=== PATIENT | male | born 1985 | race Caucasian/White ===

== ENCOUNTER → 2016-04-14 | Outpatient (CLI) | payer BC, MEDICAID ==
[2016-04-14 17:57] LABS: ALBUMIN 4.1 GM/DL (3.2-5.2); ALBUMIN/GLOBULIN RATIO 1.41 (1.00-1.93); ALKALINE PHOSPHATASE 87 U/L (45-117); ALT/SGPT 24 U/L (12-78); ANION GAP 7 MEQ/L (8-16); AST/SGOT 13 U/L (15-37); BILIRUBIN,TOTAL 0.4 MG/DL (0.2-1.0); BLOOD UREA NITROGEN 16 MG/DL (7-18); CARBON DIOXIDE LEVEL 30 MEQ/L (21-32); CHLORIDE LEVEL 105 MEQ/L (98-107); CHOLESTEROL LEVEL 155 MG/DL (<200); FREE T4 1.05 NG/DL (0.76-1.46); GLOMERULAR FILTRATION RATE > 60.0 (>60); GLUCOSE, FASTING 92 MG/DL (70-105); POTASSIUM SERUM 4.5 MEQ/L (3.5-5.1); SODIUM LEVEL 142 MEQ/L (136-145); TRIGLYCERIDES LEVEL 135 MG/DL (<150)
== END ==
LOC: M LAB 16:16
PROVIDERS: ATTEND Family Medicine
DX: G43.A0 Cyclical vomiting, in migraine, not intractable (principal); R53.83 Other fatigue; Z82.49 Family history of ischemic heart disease and other diseases of the circulatory system

== ENCOUNTER 2016-04-17 07:04 | Emergency (ER) | payer MEDICAID ==
[2016-04-17] MEDS ORDERED: ONDANSETRON 4MG/2ML VIAL (J2405) As Ordered ONE (07:39)
[2016-04-17] MEDS ORDERED: KETOROLAC 30 MG/ML VIAL (J1885) As Ordered ONE (07:39)
[2016-04-17 07:58] LABS: BASO % 0.3 % (0.0-1.0); EOS # 0.4 K/mm3 (0.0-0.50); EOS % 4.6 % (0.0-3.0); LARGE UNSTAINED CELL # 0.1 K/mm3 (0.0-0.4); LARGE UNSTAINED CELL % 0.8 % (0.0-4.0); LYMPH # 0.7 K/mm3 (1.5-4.5); LYMPH % 6.7 % (24.0-44.0); MEAN CORPUSCULAR HEMOGLOBIN 31.5 pg (27.0-33.0); MEAN CORPUSCULAR HGB CONC 34.7 g/dl (32.0-36.5); MEAN CORPUSCULAR VOLUME 90.6 fl (80.0-96.0); MONO # 0.4 K/mm3 (0.0-0.8); MONO % 4.1 % (0.0-5.0); NEUTROPHILS # 8.1 K/mm3 (1.8-7.7); NEUTROPHILS % 83.5 % (36.0-66.0); PLATELET COUNT, AUTOMATED 211 k/mm3 (150-450); RED CELL DISTRIBUTION WIDTH 12.6 % (11.5-14.5); WHITE BLOOD COUNT 9.7 K/mm3 (4.0-10.0)
[2016-04-17 08:13] LABS: ALBUMIN/GLOBULIN RATIO 1.18 (1.00-1.93); ALKALINE PHOSPHATASE 79 U/L (45-117); ALT/SGPT 22 U/L (12-78); AMYLASE 44 U/L (25-115); ANION GAP 6 MEQ/L (8-16); AST/SGOT 12 U/L (15-37); BILIRUBIN,DIRECT 0.3 MG/DL (0.0-0.2); BLOOD UREA NITROGEN 14 MG/DL (7-18); CALCIUM LEVEL 8.9 MG/DL (8.5-10.1); CARBON DIOXIDE LEVEL 29 MEQ/L (21-32); CHLORIDE LEVEL 106 MEQ/L (98-107); CREATININE FOR GFR 1.02 MG/DL (0.70-1.30); GLOMERULAR FILTRATION RATE > 60.0 (>60); GLUCOSE, FASTING 107 MG/DL (70-105); POTASSIUM SERUM 4.4 MEQ/L (3.5-5.1); SODIUM LEVEL 141 MEQ/L (136-145); TOTAL PROTEIN 7.4 GM/DL (6.4-8.2)
[2016-04-17] MEDS ORDERED: diphenhydrAMINE 25 MG CAP As Ordered ONE (08:49)
--- NOTE | 2016-04-17 09:01 | EDDOCDS ---
Physician Documentation [facility] Name: Shreyas Taylor Age: 30 yrs Sex: Male : 1985 Arrival Date: 04/17/2016 Time: 07:04 Bed I2 / M2 Private MD: Yeison Velazquez M. Disposition: 04/17/16 08:30 Discharged to Home/Self Care. Impression: Nausea and vomiting. - Condition is Stable. - Discharge Instructions: Nausea and Vomiting. - Prescriptions for Zofran 4 mg Oral Tablet - take 1 tablet by ORAL route 4 times per day As needed; 10 tablet. - Medication Reconciliation, Local Pharmacy Hours form. - Follow up: Yeison Velazquez; When: 2 - 3 days; Reason: Recheck today's complaints, Continuance of care. - Problem is new. - Symptoms are unchanged. Historical: - Allergies: Amoxicillin (Rash); - Home Meds: 1. none - PMHx: none; - PSHx: none; - Social history: Smoking status: Patient states former smoker of tobacco. No barriers to communication noted, Speaks appropriately for age. - Family history: Not pertinent. - : The pt / caregiver states he / she is not on anticoagulants. Home medication list is obtained from the patient. - Exposure Risk Screening:: None identified. Vital Signs: 04/17 07:11 BP 143 / 97; Pulse 102; Resp 16; Temp 98.2(O); Pulse Ox 98% on R/A; Weight 65.77 kg / ml6 145 lbs (R); Height 5 ft. 9 in. (175.26 cm) (R); Pain 0/10; 07:11 BP 140 / 88 Supine; Pulse 86; ml6 07:11 BP 142 / 92 Standing; Pulse 106; ml6 07:11 BP 143 / 93 Sitting; Pulse 101; ml6 08:10 Pain 0/10; ml6 08:35 BP 129 / 76; Pulse 76; Resp 17; Temp 97.0(O); Pulse Ox 99% on R/A; lr2 07:11 Body Mass Index 21.41 (65.77 kg, 175.26 cm) ml6 MDM: 07:35 NS 0.9% 1000 ml IV at bolus once ordered. ke 07:35 Ondansetron 4 mg IVP once ordered. ke 07:35 ketorolac 30 mg IVP once ordered. ke 07:35 IV Saline Lock ordered. ke 07:35 Undress patient appropriately for examination ordered. ke 07:35 Obtain sample by nasopharyngeal swab ordered. ke 07:36 Amylase Ordered. EDMS 07:36 Basic Metabolic Profile Ordered. EDMS 07:36 CBC with Diff Ordered. EDMS 07:36 Lipase Ordered. EDMS 07:36 Liver Profile Ordered. EDMS 07:36 -Influenza A&B Rapid Antigen - Nose Ordered. EDMS 07:36 NOTHING BY MOUTH+DIET ordered. EDMS 07:37 Financial registration complete. lg 08:26 Basic Metabolic Profile Reviewed. ke 08:26 CBC with Diff Reviewed. ke 08:26 Liver Profile Reviewed. ke 08:26 Amylase Reviewed. ke 08:26 Lipase Reviewed. ke 08:26 -Influenza A&B Rapid Antigen - Nose Reviewed. ke 08:49 diphenhydrAMINE 25 mg PO once ordered. ke 08:52 [facility] Payment Agreement was scanned into [employer] and attached to record. lg Administered Medications: 07:48 Drug: NS 0.9% 1000 ml [sodium chloride 0.9 % intravenous solution] Route: IV; Rate: ml6 bolus; Site: right antecubital; 08:55 Follow up: IV Status: Completed infusion; Infusion discontinued; IV Intake: 1000ml ml6 07:48 Drug: Ondansetron 4 mg [ondansetron HCl 2 mg/mL intravenous solution (2 mL)] Route: ml6 IVP; Site: right antecubital; 07:48 Drug: ketorolac 30 mg [ketorolac 30 mg/mL (1 mL) injection solution (1 mL)] Route: IVP; ml6 Site: right antecubital; 08:10 Follow up: Pain 0/10 Adult ml6 08:55 Drug: diphenhydrAMINE 25 mg [diphenhydramine 25 mg capsule (1 caps)] Route: PO; ml6 Signatures: Dispatcher [employer] Robert Holt, Asim Reg Melchor Romero, STRIPE MARKER STRIPE MARKER Shreyas Robins, RN RN ml6 The chart was reviewed and I authenticate all verbal orders and agree with the evaluation and treatment provided.Attachments: 08:52 [facility] [place] Agreement lg MTDD
--- NOTE | 2016-04-17 09:01 | EDDOCDS ---
Nurse's Notes [facility] Name: Shreyas Taylor Age: 30 yrs Sex: Male : 1985 Arrival Date: 04/17/2016 Time: 07:04 Bed I2 / M2 Private MD: Yeison Velazquez M. Diagnosis: Nausea and vomiting Presentation: 04/17 07:10 Presenting complaint: Patient states: states n/v/d denies abd pain, began this am. ml6 Adult Sepsis Screening: The patient does not have new or worsening altered mentation. Patient's respiratory rate is less than 22. Systolic blood pressure is greater than 100. Patient has a qSOFA score of 0- Negative Sepsis Screen. Suicide/Homicide risk assessment- the patient denies having any suicidal and/or homicidal ideations and does not present with any other emotional, behavioral or mental health complaints. Status: Patient is not a service specialist or dependent. Transition of care: patient was not received from another setting of care. 07:10 Acuity: ROSA MARIA Level 4 ml6 07:10 Method Of Arrival: Walkin/Carried/Asstd ml6 08:36 Acuity: ROSA MARIA Level 3 ml6 Triage Assessment: 07:14 General: Appears comfortable, Behavior is appropriate for age. Pain: Denies pain. HIV ml6 screening NA for this visit Offered previously. Neurological: No deficits noted. Cardiovascular: No deficits noted. Capillary refill < 3 seconds is brisk in bilateral fingers toes Heart tones S1 S2 present. Respiratory: No deficits noted. Airway is patent Respiratory effort is even, unlabored, Respiratory pattern is regular, symmetrical, Breath sounds are clear bilaterally. GI: Abdomen is flat, non- distended Bowel sounds present X 4 quads. Abd is soft and non tender X 4 quads. Historical: - Allergies: Amoxicillin (Rash); - Home Meds: 1. none - PMHx: none; - PSHx: none; - Social history: Smoking status: Patient states former smoker of tobacco. No barriers to communication noted, Speaks appropriately for age. - Family history: Not pertinent. - : The pt / caregiver states he / she is not on anticoagulants. Home medication list is obtained from the patient. - Exposure Risk Screening:: None identified. Screenin:37 Screening information is obtained from the patient. Fall risk: No risks identified. ml6 Assistance ADL's: requires no assistance with activities of daily living. Abuse/DV Screen: The patient / caregiver reports he/she is: not in a situation that causes fear, pain or injury. Nutritional screening: No deficits noted. Advance Directives: Currently, there is no health care proxy. home support is adequate. Assessment: 07:14 General: see triage assessment. ml6 08:55 General: patient has one solitary hive over right tenriism, no other hives noticed on ml6 head to toe exam, Kandace Campos PARARESCUE MANAGER notified, benadryl given. Vital Signs: 07:11 BP 143 / 97; Pulse 102; Resp 16; Temp 98.2(O); Pulse Ox 98% on R/A; Weight 65.77 kg ml6 (R); Height 5 ft. 9 in. (175.26 cm) (R); Pain 0/10; 07:11 BP 140 / 88 Supine; Pulse 86; ml6 07:11 BP 142 / 92 Standing; Pulse 106; ml6 07:11 BP 143 / 93 Sitting; Pulse 101; ml6 08:10 Pain 0/10; ml6 08:35 BP 129 / 76; Pulse 76; Resp 17; Temp 97.0(O); Pulse Ox 99% on R/A; lr2 07:11 Body Mass Index 21.41 (65.77 kg, 175.26 cm) 6 Vitals: 07:11 Log In Time: April 17, 2016 at 07:03. 6 ED Course: 07:05 Patient visited by Darrell Maria. mm15 07:05 Yeison Velazquez is Private Physician. mm15 07:05 Patient moved to Waiting mm15 07:10 Triage Initiated ml6 07:15 Patient moved to I2 / M2 ml6 07:27 [facility] ke 07:27 Patient visited by Melchor Campos FNP. ke 07:27 Patient visited by Melchor Campos FNP. ke 07:46 Patient visited by Mimi Bella, [facility]. rs6 07:46 -Influenza A&B Rapid Antigen - Nose Sent. rs6 07:46 Amylase Sent. rs6 07:46 Basic Metabolic Profile Sent. rs6 07:46 CBC with Diff Sent. rs6 07:46 Lipase Sent. rs6 07:46 Liver Profile Sent. rs6 07:46 Labs drawn. (by ED staff). Sent per order to lab. rs6 07:49 Inserted peripheral IV: 18gauge IV in right antecubital area and blood collected. ml6 Patient tolerated the procedure well. 08:12 Patient visited by Melchor Campos FNP. ke 08:30 Yeison Velazquez is Referral Physician. ke 08:37 No procedures done that require assistance. ml6 08:52 Patient name changed from Shreyas\S\\S\Brandon\S\ to Shreyas\S\ \S\Brandon. EDMS 08:52 [facility] Payment Agreement was scanned into [employer] and attached to record. lg 08:56 Discontinued IV bleeding controlled, pressure dressing applied, No redness/swelling at ml6 site. 08:57 The patient / caregiver is instructed regarding the plan of care and ED course. ml6 08:59 Patient name changed from Shreyas\S\ \S\Brandon\S\ to Shreyas\S\Sergio\S\Brandon. EDMS Administered Medications: 07:48 Drug: NS 0.9% 1000 ml [sodium chloride 0.9 % intravenous solution] Route: IV; Rate: ml6 bolus; Site: right antecubital; 08:55 Follow up: IV Status: Completed infusion; Infusion discontinued; IV Intake: 1000ml ml6 07:48 Drug: Ondansetron 4 mg [ondansetron HCl 2 mg/mL intravenous solution (2 mL)] Route: ml6 IVP; Site: right antecubital; 07:48 Drug: ketorolac 30 mg [ketorolac 30 mg/mL (1 mL) injection solution (1 mL)] Route: IVP; ml6 Site: right antecubital; 08:10 Follow up: Pain 0/10 Adult ml6 08:55 Drug: diphenhydrAMINE 25 mg [diphenhydramine 25 mg capsule (1 caps)] Route: PO; ml6 Intake: 08:55 IV: 1000.00ml; Total: 1000.00ml. ml6 Order Results: Lab Order: Amylase; SPEC'M 04/17/16 07:45 Test: AMYLASE; Value: 44; Range: 25-115; Units: U/L; Status: F Lab Order: Basic Metabolic Profile; SPEC'M 04/17/16 07:45 Test: GLUCOSE, FASTING; Value: 107; Range: 70-105; Abnormal: Above high normal; Units: MG/DL; Status: F Test: BLOOD UREA NITROGEN; Value: 14; Range: 7-18; Units: MG/DL; Status: F Test: CREATININE FOR GFR; Value: 1.02; Range: 0.70-1.30; Units: MG/DL; Status: F Test: GLOMERULAR FILTRATION RATE; Value: > 60.0; Range: >60; Status: F Test: SODIUM LEVEL; Value: 141; Range: 136-145; Units: MEQ/L; Status: F Test: POTASSIUM SERUM; Value: 4.4; Range: 3.5-5.1; Units: MEQ/L; Status: F Test: CHLORIDE LEVEL; Value: 106; Range: 98-107; Units: MEQ/L; Status: F Test: CARBON DIOXIDE LEVEL; Value: 29; Range: 21-32; Units: MEQ/L; Status: F Test: ANION GAP; Value: 6; Range: 8-16; Abnormal: Below low normal; Units: MEQ/L; Status: F Test: CALCIUM LEVEL; Value: 8.9; Range: 8.5-10.1; Units: MG/DL; Status: F Test Note: ; Units are mL/min/1.73 m2 Chronic Kidney Disease Staging per NKF: Stage I & II GFR >=60 Normal to Mildly Decreased Stage III GFR 30-59 Moderately Decreased Stage IV GFR 15-29 Severely Decreased Stage V GFR <15 Very Little GFR Left ESRD GFR <15 on ORAL AND MAXILLOFACIAL SURGERY RESIDENT Lab Order: CBC with Diff; SPEC'M 04/17/16 07:45 Test: WHITE BLOOD COUNT; Value: 9.7; Range: 4.0-10.0; Units: K/mm3; Status: F Test: RED BLOOD COUNT; Value: 5.19; Range: 4.30-6.10; Units: M/mm3; Status: F Test: HEMOGLOBIN; Value: 16.3; Range: 14.0-18.0; Units: g/dl; Status: F Test: HEMATOCRIT; Value: 47.0; Range: 42.0-52.0; Units: %; Status: F Test: MEAN CORPUSCULAR VOLUME; Value: 90.6; Range: 80.0-96.0; Units: fl; Status: F Test: MEAN CORPUSCULAR HEMOGLOBIN; Value: 31.5; Range: 27.0-33.0; Units: pg; Status: F Test: MEAN CORPUSCULAR HGB CONC; Value: 34.7; Range: 32.0-36.5; Units: g/dl; Status: F Test: RED CELL DISTRIBUTION WIDTH; Value: 12.6; Range: 11.5-14.5; Units: %; Status: F Test: PLATELET COUNT, AUTOMATED; Value: 211; Range: 150-450; Units: k/mm3; Status: F Test: NEUTROPHILS %; Value: 83.5; Range: 36.0-66.0; Abnormal: Above high normal; Units: %; Status: F Test: LYMPH %; Value: 6.7; Range: 24.0-44.0; Abnormal: Below low normal; Units: %; Status: F Test: MONO %; Value: 4.1; Range: 0.0-5.0; Units: %; Status: F Test: EOS %; Value: 4.6; Range: 0.0-3.0; Abnormal: Above high normal; Units: %; Status: F Test: BASO %; Value: 0.3; Range: 0.0-1.0; Units: %; Status: F Test: LARGE UNSTAINED CELL %; Value: 0.8; Range: 0.0-4.0; Units: %; Status: F Test: NEUTROPHILS #; Value: 8.1; Range: 1.8-7.7; Abnormal: Above high normal; Units: K/mm3; Status: F Test: LYMPH #; Value: 0.7; Range: 1.5-4.5; Abnormal: Below low normal; Units: K/mm3; Status: F Test: MONO #; Value: 0.4; Range: 0.0-0.8; Units: K/mm3; Status: F Test: EOS #; Value: 0.4; Range: 0.0-0.50; Units: K/mm3; Status: F Test: BASO #; Value: 0.0; Range: 0.0-0.2; Units: K/mm3; Status: F Test: LARGE UNSTAINED CELL #; Value: 0.1; Range: 0.0-0.4; Units: K/mm3; Status: F Lab Order: Lipase; SPEC'M 04/17/16 07:45 Test: LIPASE; Value: 171; Range: 73-393; Units: U/L; Status: F Lab Order: Liver Profile; SPEC'M 04/17/16 07:45 Test: AST/SGOT; Value: 12; Range: 15-37; Abnormal: Below low normal; Units: U/L; Status: F Test: ALT/SGPT; Value: 22; Range: 12-78; Units: U/L; Status: F Test: ALKALINE PHOSPHATASE; Value: 79; Range: 45-117; Units: U/L; Status: F Test: BILIRUBIN,TOTAL; Value: 1.0; Range: 0.2-1.0; Abnormal: Delta; Units: MG/DL; Status: F Test: BILIRUBIN,DIRECT; Value: 0.3; Range: 0.0-0.2; Abnormal: Above high normal; Units: MG/DL; Status: F Test: TOTAL PROTEIN; Value: 7.4; Range: 6.4-8.2; Units: GM/DL; Status: F Test: ALBUMIN; Value: 4.0; Range: 3.2-5.2; Units: GM/DL; Status: F Test: ALBUMIN/GLOBULIN RATIO; Value: 1.18; Range: 1.00-1.93; Status: F Lab Order: -Influenza A&B Rapid Antigen - Nose; SPEC'M 04/17/16 07:46 Test: INFLUENZA A RAPID SCR by ICA; Value: INFLUENZA A RESULTS NEGATIVE; Status: F Test: INFLUENZA A RAPID SCR by ICA; Value: Comments:; Status: F Test: INFLUENZA B RAPID SCR by ICA; Value: INFLUENZA B RESULTS NEGATIVE; Status: F Test Note: ; The Influenza test is a direct rapid immunoassay for the qualitative detection of Influenza viral antigen. Cell culture (Viral Culture) testing should be considered to confirm NEGATIVE results and to assist in detecting other viruses that can provide similar clinical symptoms. Please contact the lab within 24 hours ([phone] if confirmatory testing is desired. Outcome: 08:30 Discharge ordered by Provider. 08:56 Discharge Assessment: patient administered narcotics - no. The following High Risk [facility] Discharge criteria are identified: None. Discharged to home ambulatory, with significant other. Condition: improved. Discharge instructions given to patient, Instructed on discharge instructions, follow up and referral plans. medication usage, Demonstrated understanding of instructions, medications, Pt was receptive of discharge instructions/ teaching. Prescriptions given X 1. No special radiology studies were completed. Property :Personal belongings accompany Pt. 08:59 Patient left the ED. ml6 Signatures: Dispatcher Med[employer] EDMS Robert Jara, Asim Reg lg Melchor Campos, SHANK CARRIER SHANK CARRIER Shreyas Robins, RN RN ml6 Darrell Maria mm15 Mimi Bella, CARMEN PROFESSOR OF ECONOMICS rs6 Frances Mello lr2 MTDD
--- NOTE | 2016-04-19 10:00 | EDDOCDS ---
Physician Documentation [facility] Name: Shreyas Taylor Age: 30 yrs Sex: Male : 1985 Arrival Date: 04/17/2016 Time: 07:04 Bed I2 / M2 Private MD: Yeison Velazquez M. Disposition: 04/17/16 08:30 Discharged to Home/Self Care. Impression: Nausea and vomiting. - Condition is Stable. - Discharge Instructions: Nausea and Vomiting. - Prescriptions for Zofran 4 mg Oral Tablet - take 1 tablet by ORAL route 4 times per day As needed; 10 tablet. - Medication Reconciliation, Local Pharmacy Hours form. - Follow up: Yeison Velazquez; When: 2 - 3 days; Reason: Recheck today's complaints, Continuance of care. - Problem is new. - Symptoms are unchanged. Historical: - Allergies: Amoxicillin (Rash); - Home Meds: 1. none - PMHx: none; - PSHx: none; - Social history: Smoking status: Patient states former smoker of tobacco. No barriers to communication noted, Speaks appropriately for age. - Family history: Not pertinent. - : The pt / caregiver states he / she is not on anticoagulants. Home medication list is obtained from the patient. - Exposure Risk Screening:: None identified. Vital Signs: 04/17 07:11 BP 143 / 97; Pulse 102; Resp 16; Temp 98.2(O); Pulse Ox 98% on R/A; Weight 65.77 kg / ml6 145 lbs (R); Height 5 ft. 9 in. (175.26 cm) (R); Pain 0/10; 07:11 BP 140 / 88 Supine; Pulse 86; ml6 07:11 BP 142 / 92 Standing; Pulse 106; ml6 07:11 BP 143 / 93 Sitting; Pulse 101; ml6 08:10 Pain 0/10; ml6 08:35 BP 129 / 76; Pulse 76; Resp 17; Temp 97.0(O); Pulse Ox 99% on R/A; lr2 07:11 Body Mass Index 21.41 (65.77 kg, 175.26 cm) ml6 MDM: 07:35 NS 0.9% 1000 ml IV at bolus once ordered. ke 07:35 Ondansetron 4 mg IVP once ordered. ke 07:35 ketorolac 30 mg IVP once ordered. ke 07:35 IV Saline Lock ordered. ke 07:35 Undress patient appropriately for examination ordered. ke 07:35 Obtain sample by nasopharyngeal swab ordered. ke 07:36 Amylase Ordered. EDMS 07:36 Basic Metabolic Profile Ordered. EDMS 07:36 CBC with Diff Ordered. EDMS 07:36 Lipase Ordered. EDMS 07:36 Liver Profile Ordered. EDMS 07:36 -Influenza A&B Rapid Antigen - Nose Ordered. EDMS 07:36 NOTHING BY MOUTH+DIET ordered. EDMS 07:37 Financial registration complete. lg 08:26 Basic Metabolic Profile Reviewed. ke 08:26 CBC with Diff Reviewed. ke 08:26 Liver Profile Reviewed. ke 08:26 Amylase Reviewed. ke 08:26 Lipase Reviewed. ke 08:26 -Influenza A&B Rapid Antigen - Nose Reviewed. ke 08:49 diphenhydrAMINE 25 mg PO once ordered. ke 08:52 [facility] Payment Agreement was scanned into [employer] and attached to record. lg 14:42 T-Sheet-- Draft Copy was scanned into [employer] and attached to record. gb Administered Medications: 07:48 Drug: NS 0.9% 1000 ml [sodium chloride 0.9 % intravenous solution] Route: IV; Rate: ml6 bolus; Site: right antecubital; 08:55 Follow up: IV Status: Completed infusion; Infusion discontinued; IV Intake: 1000ml ml6 07:48 Drug: Ondansetron 4 mg [ondansetron HCl 2 mg/mL intravenous solution (2 mL)] Route: ml6 IVP; Site: right antecubital; 07:48 Drug: ketorolac 30 mg [ketorolac 30 mg/mL (1 mL) injection solution (1 mL)] Route: IVP; ml6 Site: right antecubital; 08:10 Follow up: Pain 0/10 Adult ml6 08:55 Drug: diphenhydrAMINE 25 mg [diphenhydramine 25 mg capsule (1 caps)] Route: PO; ml6 Signatures: Dispatcher [employer] EDMS Maki Mendoza, Reg Reg gb Robert Jara, Reg Reg lg Melchor Campos, SUPERANNUATION FUNDS MANAGER SUPERANNUATION FUNDS MANAGER Shreyas Robins, RN RN ml6 The chart was reviewed and I authenticate all verbal orders and agree with the evaluation and treatment provided.Attachments: 08:52 [facility] Payment Agreement lg 14:42 T-Sheet-- Draft Copy gb Chart Complete MTDD
--- NOTE | 2016-04-19 10:00 | EDDOCDS ---
Physician Documentation [facility] Name: Shreyas Taylor Age: 30 yrs Sex: Male : 1985 Arrival Date: 04/17/2016 Time: 07:04 Bed I2 / M2 Private MD: Yeison Velazquez M. Disposition: 04/17/16 08:30 Discharged to Home/Self Care. Impression: Nausea and vomiting. - Condition is Stable. - Discharge Instructions: Nausea and Vomiting. - Prescriptions for Zofran 4 mg Oral Tablet - take 1 tablet by ORAL route 4 times per day As needed; 10 tablet. - Medication Reconciliation, Local Pharmacy Hours form. - Follow up: Yeison Velazquez; When: 2 - 3 days; Reason: Recheck today's complaints, Continuance of care. - Problem is new. - Symptoms are unchanged. Historical: - Allergies: Amoxicillin (Rash); - Home Meds: 1. none - PMHx: none; - PSHx: none; - Social history: Smoking status: Patient states former smoker of tobacco. No barriers to communication noted, Speaks appropriately for age. - Family history: Not pertinent. - : The pt / caregiver states he / she is not on anticoagulants. Home medication list is obtained from the patient. - Exposure Risk Screening:: None identified. Vital Signs: 04/17 07:11 BP 143 / 97; Pulse 102; Resp 16; Temp 98.2(O); Pulse Ox 98% on R/A; Weight 65.77 kg / ml6 145 lbs (R); Height 5 ft. 9 in. (175.26 cm) (R); Pain 0/10; 07:11 BP 140 / 88 Supine; Pulse 86; ml6 07:11 BP 142 / 92 Standing; Pulse 106; ml6 07:11 BP 143 / 93 Sitting; Pulse 101; ml6 08:10 Pain 0/10; ml6 08:35 BP 129 / 76; Pulse 76; Resp 17; Temp 97.0(O); Pulse Ox 99% on R/A; lr2 07:11 Body Mass Index 21.41 (65.77 kg, 175.26 cm) ml6 MDM: 07:35 NS 0.9% 1000 ml IV at bolus once ordered. ke 07:35 Ondansetron 4 mg IVP once ordered. ke 07:35 ketorolac 30 mg IVP once ordered. ke 07:35 IV Saline Lock ordered. ke 07:35 Undress patient appropriately for examination ordered. ke 07:35 Obtain sample by nasopharyngeal swab ordered. ke 07:36 Amylase Ordered. EDMS 07:36 Basic Metabolic Profile Ordered. EDMS 07:36 CBC with Diff Ordered. EDMS 07:36 Lipase Ordered. EDMS 07:36 Liver Profile Ordered. EDMS 07:36 -Influenza A&B Rapid Antigen - Nose Ordered. EDMS 07:36 NOTHING BY MOUTH+DIET ordered. EDMS 07:37 Financial registration complete. lg 08:26 Basic Metabolic Profile Reviewed. ke 08:26 CBC with Diff Reviewed. ke 08:26 Liver Profile Reviewed. ke 08:26 Amylase Reviewed. ke 08:26 Lipase Reviewed. ke 08:26 -Influenza A&B Rapid Antigen - Nose Reviewed. ke 08:49 diphenhydrAMINE 25 mg PO once ordered. ke 08:52 [facility] Payment Agreement was scanned into [employer] and attached to record. lg 14:42 T-Sheet-- Draft Copy was scanned into [employer] and attached to record. gb Administered Medications: 07:48 Drug: NS 0.9% 1000 ml [sodium chloride 0.9 % intravenous solution] Route: IV; Rate: ml6 bolus; Site: right antecubital; 08:55 Follow up: IV Status: Completed infusion; Infusion discontinued; IV Intake: 1000ml ml6 07:48 Drug: Ondansetron 4 mg [ondansetron HCl 2 mg/mL intravenous solution (2 mL)] Route: ml6 IVP; Site: right antecubital; 07:48 Drug: ketorolac 30 mg [ketorolac 30 mg/mL (1 mL) injection solution (1 mL)] Route: IVP; ml6 Site: right antecubital; 08:10 Follow up: Pain 0/10 Adult ml6 08:55 Drug: diphenhydrAMINE 25 mg [diphenhydramine 25 mg capsule (1 caps)] Route: PO; ml6 Signatures: Dispatcher [employer] EDMS Maki Mendoza, Reg Reg gb Robert Jara, Reg Reg lg Melchor Campos, BILLET WORKER BILLET WORKER Shreyas Robins, RN RN ml6 The chart was reviewed and I authenticate all verbal orders and agree with the evaluation and treatment provided.Attachments: 08:52 [facility] Payment Agreement lg 14:42 T-Sheet-- Draft Copy gb Chart Complete MTDD
--- NOTE | 2016-04-19 10:00 | EDDOCDS ---
Nurse's Notes [facility] Name: Shreyas Taylor Age: 30 yrs Sex: Male : 1985 Arrival Date: 04/17/2016 Time: 07:04 Bed I2 / M2 Private MD: Yeison Velazquez M. Diagnosis: Nausea and vomiting Presentation: 04/17 07:10 Presenting complaint: Patient states: states n/v/d denies abd pain, began this am. ml6 Adult Sepsis Screening: The patient does not have new or worsening altered mentation. Patient's respiratory rate is less than 22. Systolic blood pressure is greater than 100. Patient has a qSOFA score of 0- Negative Sepsis Screen. Suicide/Homicide risk assessment- the patient denies having any suicidal and/or homicidal ideations and does not present with any other emotional, behavioral or mental health complaints. Status: Patient is not a human services instructor or dependent. Transition of care: patient was not received from another setting of care. 07:10 Acuity: ROSA MARIA Level 4 ml6 07:10 Method Of Arrival: Walkin/Carried/Asstd ml6 08:36 Acuity: ROSA MARIA Level 3 ml6 Triage Assessment: 07:14 General: Appears comfortable, Behavior is appropriate for age. Pain: Denies pain. HIV ml6 screening NA for this visit Offered previously. Neurological: No deficits noted. Cardiovascular: No deficits noted. Capillary refill < 3 seconds is brisk in bilateral fingers toes Heart tones S1 S2 present. Respiratory: No deficits noted. Airway is patent Respiratory effort is even, unlabored, Respiratory pattern is regular, symmetrical, Breath sounds are clear bilaterally. GI: Abdomen is flat, non- distended Bowel sounds present X 4 quads. Abd is soft and non tender X 4 quads. Historical: - Allergies: Amoxicillin (Rash); - Home Meds: 1. none - PMHx: none; - PSHx: none; - Social history: Smoking status: Patient states former smoker of tobacco. No barriers to communication noted, Speaks appropriately for age. - Family history: Not pertinent. - : The pt / caregiver states he / she is not on anticoagulants. Home medication list is obtained from the patient. - Exposure Risk Screening:: None identified. Screenin:37 Screening information is obtained from the patient. Fall risk: No risks identified. ml6 Assistance ADL's: requires no assistance with activities of daily living. Abuse/DV Screen: The patient / caregiver reports he/she is: not in a situation that causes fear, pain or injury. Nutritional screening: No deficits noted. Advance Directives: Currently, there is no health care proxy. home support is adequate. Assessment: 07:14 General: see triage assessment. ml6 08:55 General: patient has one solitary hive over right nondenominational, no other hives noticed on ml6 head to toe exam, Kandace Campos MOTOR INSPECTION MECHANIC notified, benadryl given. Vital Signs: 07:11 BP 143 / 97; Pulse 102; Resp 16; Temp 98.2(O); Pulse Ox 98% on R/A; Weight 65.77 kg ml6 (R); Height 5 ft. 9 in. (175.26 cm) (R); Pain 0/10; 07:11 BP 140 / 88 Supine; Pulse 86; ml6 07:11 BP 142 / 92 Standing; Pulse 106; ml6 07:11 BP 143 / 93 Sitting; Pulse 101; ml6 08:10 Pain 0/10; ml6 08:35 BP 129 / 76; Pulse 76; Resp 17; Temp 97.0(O); Pulse Ox 99% on R/A; lr2 07:11 Body Mass Index 21.41 (65.77 kg, 175.26 cm) 6 Vitals: 07:11 Log In Time: April 17, 2016 at 07:03. 6 ED Course: 07:05 Patient visited by Darrell Maria. mm15 07:05 Yeison Velazquez is Private Physician. mm15 07:05 Patient moved to Waiting mm15 07:10 Triage Initiated ml6 07:15 Patient moved to I2 / M2 ml6 07:27 Melchor Campos FNP [facility]. ke 07:27 Patient visited by Melchor Campos FNP. ke 07:27 Patient visited by Melchor Campos FNP. ke 07:46 Patient visited by Mimi Bella, [facility]. rs6 07:46 -Influenza A&B Rapid Antigen - Nose Sent. rs6 07:46 Amylase Sent. rs6 07:46 Basic Metabolic Profile Sent. rs6 07:46 CBC with Diff Sent. rs6 07:46 Lipase Sent. rs6 07:46 Liver Profile Sent. rs6 07:46 Labs drawn. (by ED staff). Sent per order to lab. rs6 07:49 Inserted peripheral IV: 18gauge IV in right antecubital area and blood collected. ml6 Patient tolerated the procedure well. 08:12 Patient visited by Melchor Campos FNP. ke 08:30 Yeison Velazquez is Referral Physician. ke 08:37 No procedures done that require assistance. ml6 08:52 Patient name changed from Shreyas\S\\S\Brandon\S\ to Shreyas\S\ \S\Brandon. EDMS 08:52 [facility] [place] Payment Agreement was scanned into [employer] and attached to record. lg 08:56 Discontinued IV bleeding controlled, pressure dressing applied, No redness/swelling at ml6 site. 08:57 The patient / caregiver is instructed regarding the plan of care and ED course. ml6 08:59 Patient name changed from Shreyas\S\ \S\Brandon\S\ to Shreyas\S\Sergio\S\Brandon. EDMS 14:42 T-Sheet-- Draft Copy was scanned into [employer] and attached to record. gb Administered Medications: 07:48 Drug: NS 0.9% 1000 ml [sodium chloride 0.9 % intravenous solution] Route: IV; Rate: ml6 bolus; Site: right antecubital; 08:55 Follow up: IV Status: Completed infusion; Infusion discontinued; IV Intake: 1000ml ml6 07:48 Drug: Ondansetron 4 mg [ondansetron HCl 2 mg/mL intravenous solution (2 mL)] Route: ml6 IVP; Site: right antecubital; 07:48 Drug: ketorolac 30 mg [ketorolac 30 mg/mL (1 mL) injection solution (1 mL)] Route: IVP; ml6 Site: right antecubital; 08:10 Follow up: Pain 0/10 Adult ml6 08:55 Drug: diphenhydrAMINE 25 mg [diphenhydramine 25 mg capsule (1 caps)] Route: PO; ml6 Intake: 08:55 IV: 1000.00ml; Total: 1000.00ml. ml6 Order Results: Lab Order: Amylase; SPEC'M 04/17/16 07:45 Test: AMYLASE; Value: 44; Range: 25-115; Units: U/L; Status: F Lab Order: Basic Metabolic Profile; SPEC'M 04/17/16 07:45 Test: GLUCOSE, FASTING; Value: 107; Range: 70-105; Abnormal: Above high normal; Units: MG/DL; Status: F Test: BLOOD UREA NITROGEN; Value: 14; Range: 7-18; Units: MG/DL; Status: F Test: CREATININE FOR GFR; Value: 1.02; Range: 0.70-1.30; Units: MG/DL; Status: F Test: GLOMERULAR FILTRATION RATE; Value: > 60.0; Range: >60; Status: F Test: SODIUM LEVEL; Value: 141; Range: 136-145; Units: MEQ/L; Status: F Test: POTASSIUM SERUM; Value: 4.4; Range: 3.5-5.1; Units: MEQ/L; Status: F Test: CHLORIDE LEVEL; Value: 106; Range: 98-107; Units: MEQ/L; Status: F Test: CARBON DIOXIDE LEVEL; Value: 29; Range: 21-32; Units: MEQ/L; Status: F Test: ANION GAP; Value: 6; Range: 8-16; Abnormal: Below low normal; Units: MEQ/L; Status: F Test: CALCIUM LEVEL; Value: 8.9; Range: 8.5-10.1; Units: MG/DL; Status: F Test Note: ; Units are mL/min/1.73 m2 Chronic Kidney Disease Staging per NKF: Stage I & II GFR >=60 Normal to Mildly Decreased Stage III GFR 30-59 Moderately Decreased Stage IV GFR 15-29 Severely Decreased Stage V GFR <15 Very Little GFR Left ESRD GFR <15 on FORESTRY AID TECHNICIAN Lab Order: CBC with Diff; SPEC'M 04/17/16 07:45 Test: WHITE BLOOD COUNT; Value: 9.7; Range: 4.0-10.0; Units: K/mm3; Status: F Test: RED BLOOD COUNT; Value: 5.19; Range: 4.30-6.10; Units: M/mm3; Status: F Test: HEMOGLOBIN; Value: 16.3; Range: 14.0-18.0; Units: g/dl; Status: F Test: HEMATOCRIT; Value: 47.0; Range: 42.0-52.0; Units: %; Status: F Test: MEAN CORPUSCULAR VOLUME; Value: 90.6; Range: 80.0-96.0; Units: fl; Status: F Test: MEAN CORPUSCULAR HEMOGLOBIN; Value: 31.5; Range: 27.0-33.0; Units: pg; Status: F Test: MEAN CORPUSCULAR HGB CONC; Value: 34.7; Range: 32.0-36.5; Units: g/dl; Status: F Test: RED CELL DISTRIBUTION WIDTH; Value: 12.6; Range: 11.5-14.5; Units: %; Status: F Test: PLATELET COUNT, AUTOMATED; Value: 211; Range: 150-450; Units: k/mm3; Status: F Test: NEUTROPHILS %; Value: 83.5; Range: 36.0-66.0; Abnormal: Above high normal; Units: %; Status: F Test: LYMPH %; Value: 6.7; Range: 24.0-44.0; Abnormal: Below low normal; Units: %; Status: F Test: MONO %; Value: 4.1; Range: 0.0-5.0; Units: %; Status: F Test: EOS %; Value: 4.6; Range: 0.0-3.0; Abnormal: Above high normal; Units: %; Status: F Test: BASO %; Value: 0.3; Range: 0.0-1.0; Units: %; Status: F Test: LARGE UNSTAINED CELL %; Value: 0.8; Range: 0.0-4.0; Units: %; Status: F Test: NEUTROPHILS #; Value: 8.1; Range: 1.8-7.7; Abnormal: Above high normal; Units: K/mm3; Status: F Test: LYMPH #; Value: 0.7; Range: 1.5-4.5; Abnormal: Below low normal; Units: K/mm3; Status: F Test: MONO #; Value: 0.4; Range: 0.0-0.8; Units: K/mm3; Status: F Test: EOS #; Value: 0.4; Range: 0.0-0.50; Units: K/mm3; Status: F Test: BASO #; Value: 0.0; Range: 0.0-0.2; Units: K/mm3; Status: F Test: LARGE UNSTAINED CELL #; Value: 0.1; Range: 0.0-0.4; Units: K/mm3; Status: F Lab Order: Lipase; SPEC'M 04/17/16 07:45 Test: LIPASE; Value: 171; Range: 73-393; Units: U/L; Status: F Lab Order: Liver Profile; SPEC'M 04/17/16 07:45 Test: AST/SGOT; Value: 12; Range: 15-37; Abnormal: Below low normal; Units: U/L; Status: F Test: ALT/SGPT; Value: 22; Range: 12-78; Units: U/L; Status: F Test: ALKALINE PHOSPHATASE; Value: 79; Range: 45-117; Units: U/L; Status: F Test: BILIRUBIN,TOTAL; Value: 1.0; Range: 0.2-1.0; Abnormal: Delta; Units: MG/DL; Status: F Test: BILIRUBIN,DIRECT; Value: 0.3; Range: 0.0-0.2; Abnormal: Above high normal; Units: MG/DL; Status: F Test: TOTAL PROTEIN; Value: 7.4; Range: 6.4-8.2; Units: GM/DL; Status: F Test: ALBUMIN; Value: 4.0; Range: 3.2-5.2; Units: GM/DL; Status: F Test: ALBUMIN/GLOBULIN RATIO; Value: 1.18; Range: 1.00-1.93; Status: F Lab Order: -Influenza A&B Rapid Antigen - Nose; SPEC'M 04/17/16 07:46 Test: INFLUENZA A RAPID SCR by ICA; Value: INFLUENZA A RESULTS NEGATIVE; Status: F Test: INFLUENZA A RAPID SCR by ICA; Value: Comments:; Status: F Test: INFLUENZA B RAPID SCR by ICA; Value: INFLUENZA B RESULTS NEGATIVE; Status: F Test Note: ; The Influenza test is a direct rapid immunoassay for the qualitative detection of Influenza viral antigen. Cell culture (Viral Culture) testing should be considered to confirm NEGATIVE results and to assist in detecting other viruses that can provide similar clinical symptoms. Please contact the lab within 24 hours ([phone]) if confirmatory testing is desired. Outcome: 08:30 Discharge ordered by Provider. ke 08:56 Discharge Assessment: patient administered narcotics - no. The following High Risk ml6 Discharge criteria are identified: None. Discharged to home ambulatory, with significant other. Condition: improved. Discharge instructions given to patient, Instructed on discharge instructions, follow up and referral plans. medication usage, Demonstrated understanding of instructions, medications, Pt was receptive of discharge instructions/ teaching. Prescriptions given X 1. No special radiology studies were completed. Property :Personal belongings accompany Pt. 08:59 Patient left the ED. ml6 Signatures: Dispatcher [employer] EDMS Maki Mendoza, Reg Reg gb Robert Jara, Reg Reg lg Melchor Campos, VISUAL MERCHANDISE MANAGER VISUAL MERCHANDISE MANAGER Shreyas Robins, DONNELL RN ml6 Darrell Maria mm15 Mimi Bella, CARMEN SHOEMAKING FINISHER rs6 Frances Mello2 Chart Complete MARCELL
== END 2016-04-17 08:59 | disposition home or self-care (01) ==
LOC: M ED 07:04
DX: K52.9 Noninfective gastroenteritis and colitis, unspecified (principal); Z87.891 Personal history of nicotine dependence; Z88.0 Allergy status to penicillin
CPT/HCPCS: 36415; 80048; 80076; 82150; 83690; 85025; 87804; 96361; 96374; 96375; 99284; J1885; J2405

== ENCOUNTER 2017-09-28 11:19 | Day surgery (SDC) | payer BC, OTHER ==
[2017-09-28] MEDS: NS 1,000 ML IV ×3 (11:30)
[2017-09-28] MEDS ORDERED: PROPOFOL 200 MG/20 ML VIAL As Ordered ×6 (11:41)
[2017-09-28] MEDS ORDERED: LIDOCAINE 2% INJ 100 MG/5 ML SDV (FOR ANES.) As Ordered ×3 (11:41)
[2017-09-28] MEDS ORDERED: fentaNYL 100 MCG/2 ML INJECTION (J3010) As Ordered ×6 (12:10→13:55)
== END 2017-09-28 13:16 | disposition home or self-care (01) ==
LOC: M OPP 11:19
DX: R19.7 Diarrhea, unspecified (principal); K64.8 Other hemorrhoids; R10.13 Epigastric pain; R11.2 Nausea with vomiting, unspecified; K22.8 Other specified diseases of esophagus; K31.89 Other diseases of stomach and duodenum; K29.70 Gastritis, unspecified, without bleeding; Z88.0 Allergy status to penicillin; F17.210 Nicotine dependence, cigarettes, uncomplicated; Z80.8 Family history of malignant neoplasm of other organs or systems
CPT/HCPCS: 45380

== ENCOUNTER → 2017-11-05 | Outpatient (REF) | payer BC, OTHER | LOC: M SMT 13:21 | DX: Z30.2 Encounter for sterilization (principal) | CPT/HCPCS: 88302 ==

== ENCOUNTER → 2018-01-08 | Outpatient (REF) | payer BC, OTHER ==
[2018-01-08 13:00] LABS: SEMEN APPEARANCE OPAQUE (OPAQUE)
[2018-01-08 13:01] LABS: IMMMOTILE SPERM CENTRIFUGED ABSENT (ABSENT); IMMOTILE SPERM ABSENT (ABSENT); MOTILE SPERM ABSENT (ABSENT); MOTILE SPERM CENTRIFUGED ABSENT (ABSENT); SEMEN VISCOSITY LIQUID (LIQUID); SEMEN VOLUME 0.9 ml (4.0-5.0); SEMEN pH 8.5 (7.0-8.0); WBC CONCENTRATION <=1 M/ml (<=1 M/ml)
== END ==
LOC: M SMT 11:34
DX: Z30.2 Encounter for sterilization (principal)
CPT/HCPCS: 89321

== ENCOUNTER 2022-06-04 17:33 | Emergency (ER) | payer BC, OTHER, SELFPAY ==
[~2022-06-04] VITALS: Ht 175.3 cm; Wt 64.9 kg
[2022-06-04] MEDS ORDERED: ONDANSETRON 4MG 2ML VIAL IV ONE (19:00)
[2022-06-04] MEDS ORDERED: NS 1,000 ML IV ONE (19:00)
[2022-06-04] MEDS ORDERED: PANTOPRAZOLE 40MG VIAL IV ONE (19:00)
[2022-06-04 19:31] LABS: BASO # 0.1 10^3/uL (0.0-0.2); BASO % 0.6 % (0.0-1.0); EOS % 0.3 % (0.0-3.0); HEMATOCRIT 50.3 % (42.0-52.0); HEMOGLOBIN 17.7 g/dl (13.5-17.5); LYMPH # 1.2 10^3/uL (1.5-5.0); LYMPH % 8.7 % (24.0-44.0); MEAN CORPUSCULAR HEMOGLOBIN 34.4 pg (27.0-33.0); MEAN CORPUSCULAR HGB CONC 35.2 g/dl (32.0-36.5); MEAN CORPUSCULAR VOLUME 97.9 fl (80.0-96.0); MONO # 0.7 10^3/uL (0.0-0.8); MONO % 5.1 % (2.0-8.0); NEUTROPHILS # 11.2 10^3/uL (1.5-8.5); NEUTROPHILS % 85.1 % (36.0-66.0); PLATELET COUNT, AUTOMATED 279 10^3/uL (150-450); RED BLOOD COUNT 5.14 10^6/uL (4.30-6.10); WHITE BLOOD COUNT 13.2 10^3/uL (4.0-10.0)
[2022-06-04 19:56] LABS: ALBUMIN 4.4 G/DL (3.2-5.2); BILIRUBIN,DIRECT 0.5 MG/DL (<0.4); BILIRUBIN,TOTAL 1.3 MG/DL (0.3-1.2)
[2022-06-04 21:04] VITALS: BP 155/96
[2022-06-04] MEDS ORDERED: ACETAMINOPHEN 500 MG TAB PO ONE (21:05)
[2022-06-04] MEDS ORDERED: ONDA4TAB6 PO (21:09)
[2022-06-04 22:11] LABS: HEPATITIS B SURFACE ANTIGEN NEGATIVE (NEGATIVE)
[2022-06-04 22:30] LABS: HEPATITIS C VIRUS ABY INDEX < 0.0 INDEX (<0.8)
[2022-06-04 22:31] LABS: HEPATITIS B CORE ANTIBODY IGM NEGATIVE (NEGATIVE)
== END 2022-06-04 21:21 | disposition home or self-care (01) ==
LOC: M ED 17:33
DX: A08.4 Viral intestinal infection, unspecified (principal)
CPT/HCPCS: 80047; 80076; 81001; 83690; 85025; 86705; 86709; 86803; 87340; 87486; 87581; 87633; 87798; 93041; 96374; 96375; 99284; C9113; J2405

== ENCOUNTER 2022-08-20 14:21 | Emergency (ER) | payer OTHER ==
[~2022-08-20] VITALS: Ht 175.3 cm; Wt 61.2 kg
[~2022-08-20 14:21] MED LIST: ONDA4TAB6 PO
[2022-08-20 15:28] LABS: BASO # 0.1 10^3/uL (0.0-0.2); BASO % 0.4 % (0.0-1.0); HEMATOCRIT 49.8 % (42.0-52.0); LYMPH # 0.6 10^3/uL (1.5-5.0); LYMPH % 5.1 % (24.0-44.0); MEAN CORPUSCULAR HEMOGLOBIN 34.5 pg (27.0-33.0); MEAN CORPUSCULAR HGB CONC 35.7 g/dl (32.0-36.5); MEAN CORPUSCULAR VOLUME 96.5 fl (80.0-96.0); MONO # 0.4 10^3/uL (0.0-0.8); NEUTROPHILS # 10.6 10^3/uL (1.5-8.5); PLATELET COUNT, AUTOMATED 288 10^3/uL (150-450); RED BLOOD COUNT 5.16 10^6/uL (4.30-6.10); WHITE BLOOD COUNT 11.7 10^3/uL (4.0-10.0)
[2022-08-20 15:31] LABS: HEMOGLOBIN 17.8 g/dl (13.5-17.5)
[2022-08-20 15:57] LABS: BLOOD UREA NITROGEN 11 MG/DL (9-23); CALCIUM LEVEL 9.9 MG/DL (8.5-10.1); CARBON DIOXIDE LEVEL 13 MMOL/L (20-31); CHLORIDE LEVEL 96 MMOL/L (98-107); CREATININE FOR GFR 0.86 MG/DL (0.70-1.30); GLOMERULAR FILTRATION RATE > 60.0 (>60); GLUCOSE, FASTING 75 MG/DL (60-100); POTASSIUM SERUM 4.6 MMOL/L (3.5-5.1); SODIUM LEVEL 133 MMOL/L (136-145)
[2022-08-20] MEDS ORDERED: ONDANSETRON 4MG 2ML VIAL IV ONE (16:35)
[2022-08-20] MEDS ORDERED: NS 1,000 ML IV ONE ×2 (16:40→18:20)
[2022-08-20 16:58] LABS: APPEARANCE, URINE CLEAR (CLEAR); BACTERIA, URINE AUTO NEGATIVE (NEGATIVE); BILIRUBIN, URINE AUTO NEGATIVE (NEGATIVE); BLOOD, URINE BLOOD NEGATIVE (NEGATIVE); COLOR, URINE YELLOW (YELLOW); GLUCOSE, URINE (UA) AUTO NEGATIVE (NEGATIVE); GRANULAR CAST, URINE AUTO 1 /LPF; KETONE, URINE AUTO 2+ mg/dL (NEGATIVE); LEUKOCYTE ESTERASE, URINE AUTO NEGATIVE (NEGATIVE); NITRITE, URINE AUTO NEGATIVE (NEGATIVE); PROTEIN, URINE AUTO 1+ mg/dL (NEGATIVE); RBC, URINE AUTO 0 /HPF (0-3); SPECIFIC GRAVITY URINE AUTO 1.015 (1.002-1.035); SQUAMOUS EPITHELIAL CELL UR AU 0 /HPF (0-6); UROBILINOGEN, URINE AUTO 0.2 mg/dL (0.0-2.0); WBC, URINE AUTO 0 /HPF (0-3)
[2022-08-20] MEDS ORDERED: ACETAMINOPHEN 500 MG TAB PO ONE (18:20)
[2022-08-20 18:58] LABS: LIPASE 32 U/L (12-53)
[2022-08-20] MEDS ORDERED: KETOROLAC 30 MG/ML 1ML VIAL IV ONE (19:40)
[2022-08-20 19:50] LABS: VENOUS BASE EXCESS -15.7 (-2.0-2.0); VENOUS HCO3 11.8 MMOL/L (23.0-27.0); VENOUS O2 SATURATION 63.8 % (60.0-80.0); VENOUS STANDARD HCO3 12.3 MMOL/L; VENOUS TOTAL CO2 12.9 MMOL/L (24.0-28.0)
[2022-08-20 20:01] VITALS: BP 146/90; TEMP 97.8; O2SAT 99
[2022-08-20 20:17] LABS: ETHYL ALCOHOL (ETHANOL) < 0.003 % (0.000-0.010)
[2022-08-20 20:19] LABS: BLOOD UREA NITROGEN 9 MG/DL (9-23); CALCIUM LEVEL 7.4 MG/DL (8.5-10.1); CARBON DIOXIDE LEVEL 13 MMOL/L (20-31); CHLORIDE LEVEL 106 MMOL/L (98-107); CREATININE FOR GFR 0.86 MG/DL (0.70-1.30); GLOMERULAR FILTRATION RATE > 60.0 (>60); GLUCOSE, FASTING 70 MG/DL (60-100); POTASSIUM SERUM 5.3 MMOL/L (3.5-5.1); SODIUM LEVEL 136 MMOL/L (136-145)
[2022-08-20 20:25] LABS: ACETONE/KETONE > 4.50 MMOL/L (0.02-0.27); CPK CREATINE PHOSPHOKINASE 340 U/L (46-171); OSMOLALITY SERUM 287 MOSM/KG (275-295)
== END 2022-08-20 21:12 | disposition left against medical advice (07) ==
LOC: M ED 14:21
DX: E11.10 Type 2 diabetes mellitus with ketoacidosis without coma (principal); F17.200 Nicotine dependence, unspecified, uncomplicated; F12.90 Cannabis use, unspecified, uncomplicated
CPT/HCPCS: 80048; 81001; 81002; 82010; 82077; 82550; 82803; 83605; 83690; 83930; 85025; 96374; 96375; 99283; J1885; J2405

== ENCOUNTER 2022-08-30 11:18 | Emergency (ER) | payer OTHER ==
[~2022-08-30] VITALS: Ht 175.3 cm; Wt 60.8 kg
[2022-08-30] MEDS ORDERED: NS 1,000 ML IV ONE (12:30)
[2022-08-30] MEDS ORDERED: ONDANSETRON 4MG 2ML VIAL IV ONE (12:30)
[2022-08-30 12:39] LABS: BASO % 0.3 % (0.0-1.0); EOS % 0.1 % (0.0-3.0); HEMATOCRIT 53.6 % (42.0-52.0); HEMOGLOBIN 18.5 g/dl (13.5-17.5); LYMPH # 0.7 10^3/uL (1.5-5.0); LYMPH % 5.2 % (24.0-44.0); MEAN CORPUSCULAR HGB CONC 34.5 g/dl (32.0-36.5); MEAN CORPUSCULAR VOLUME 101.3 fl (80.0-96.0); MONO # 0.7 10^3/uL (0.0-0.8); MONO % 5.9 % (2.0-8.0); NEUTROPHILS # 11.1 10^3/uL (1.5-8.5); NEUTROPHILS % 87.9 % (36.0-66.0); PLATELET COUNT, AUTOMATED 269 10^3/uL (150-450); RED BLOOD COUNT 5.29 10^6/uL (4.30-6.10); WHITE BLOOD COUNT 12.6 10^3/uL (4.0-10.0)
[2022-08-30 13:19] LABS: ALBUMIN 4.5 G/DL (3.2-5.2); BILIRUBIN,DIRECT 0.4 MG/DL (<0.4); BILIRUBIN,TOTAL 1.1 MG/DL (0.3-1.2); TOTAL PROTEIN 7.6 G/DL (5.7-8.2)
[2022-08-30 15:38] VITALS: BP 120/83; TEMP 98.2; O2SAT 99
== END 2022-08-30 16:10 | disposition home or self-care (01) ==
LOC: M ED 11:18
DX: E86.0 Dehydration (principal); R74.01 Elevation of levels of liver transaminase levels; F41.9 Anxiety disorder, unspecified; F17.200 Nicotine dependence, unspecified, uncomplicated
CPT/HCPCS: 76705; 80047; 80076; 82550; 83690; 85025; 96374; 99284; J2405

== ENCOUNTER 2023-03-04 09:47 | Emergency (ER) | payer OTHER ==
[2023-03-04 10:51] LABS: RSV AMPLIFICATION NEGATIVE (NEGATIVE)
[2023-03-04] MEDS ORDERED: NS 1,000 ML IV ONE (11:30)
[2023-03-04] MEDS ORDERED: ONDANSETRON 4MG 2ML VIAL IV ONE (11:30)
[2023-03-04 12:03] LABS: BASO % 0.2 % (0.0-1.0); EOS % 0.1 % (0.0-3.0); HEMATOCRIT 45.9 % (42.0-52.0); HEMOGLOBIN 16.5 g/dl (13.5-17.5); LYMPH # 0.8 10^3/uL (1.5-5.0); LYMPH % 6.1 % (24.0-44.0); MEAN CORPUSCULAR HEMOGLOBIN 35.4 pg (27.0-33.0); MEAN CORPUSCULAR HGB CONC 35.9 g/dl (32.0-36.5); MEAN CORPUSCULAR VOLUME 98.5 fl (80.0-96.0); MONO # 0.9 10^3/uL (0.0-0.8); NEUTROPHILS # 10.7 10^3/uL (1.5-8.5); NEUTROPHILS % 86.3 % (36.0-66.0); PLATELET COUNT, AUTOMATED 260 10^3/uL (150-450); RED BLOOD COUNT 4.66 10^6/uL (4.30-6.10); WHITE BLOOD COUNT 12.4 10^3/uL (4.0-10.0)
[2023-03-04 12:56] LABS: ALBUMIN 4.1 G/DL (3.2-5.2); BILIRUBIN,DIRECT 0.5 MG/DL (<0.4); BILIRUBIN,TOTAL 1.4 MG/DL (0.3-1.2); TOTAL PROTEIN 7.3 G/DL (5.7-8.2)
[2023-03-04] MEDS ORDERED: CLEO300C2 PO (13:29)
[2023-03-04] MEDS ORDERED: ONDA4TAB6 PO (13:29)
[2023-03-04 13:37] VITALS: BP 138/96; TEMP 96.8; O2SAT 98
== END 2023-03-04 13:41 | disposition home or self-care (01) ==
LOC: M ED 09:47
DX: J02.9 Acute pharyngitis, unspecified (principal); F17.210 Nicotine dependence, cigarettes, uncomplicated; R74.01 Elevation of levels of liver transaminase levels; Z88.1 Allergy status to other antibiotic agents
CPT/HCPCS: 80047; 80076; 83690; 85025; 87631; 87880; 96361; 96374; 99284; J2405

== ENCOUNTER 2023-09-20 05:55 | Emergency (ER) | payer OTHER ==
[~2023-09-20] VITALS: Ht 175.3 cm; Wt 65.3 kg
[~2023-09-20 05:55] MED LIST changes: +CLEO300C2 PO; +ONDA-282 PO; -ONDA4TAB6 PO
[2023-09-20] MEDS ORDERED: UNIS25TA5 PO (06:45)
[2023-09-20 07:14] LABS: BASO # 0.1 10^3/uL (0.0-0.2); BASO % 0.7 % (0.0-1.0); EOS # 0.1 10^3/uL (0.0-0.5); EOS % 0.7 % (0.0-3.0); HEMATOCRIT 43.5 % (42.0-52.0); HEMOGLOBIN 15.8 g/dl (13.5-17.5); LYMPH # 0.8 10^3/uL (1.5-5.0); LYMPH % 11.8 % (24.0-44.0); MEAN CORPUSCULAR HGB CONC 36.3 g/dl (32.0-36.5); MEAN CORPUSCULAR VOLUME 99.1 fl (80.0-96.0); MONO # 0.5 10^3/uL (0.0-0.8); MONO % 7.1 % (2.0-8.0); NEUTROPHILS # 5.4 10^3/uL (1.5-8.5); NEUTROPHILS % 79.3 % (36.0-66.0); PLATELET COUNT, AUTOMATED 178 10^3/uL (150-450); RED BLOOD COUNT 4.39 10^6/uL (4.30-6.10); WHITE BLOOD COUNT 6.8 10^3/uL (4.0-10.0)
[2023-09-20] MEDS ORDERED: ISOVUE-370 76% 100ML VIAL As Ordered ONE (07:46)
[2023-09-20 08:08] LABS: INR 0.97; PARTIAL THROMBOPLASTIN TIME 24.6 SECONDS (24.8-34.2); PROTHROMBIN TIME 12.6 SECONDS (12.5-14.5)
[2023-09-20 08:15] LABS: CK-MB VALUE MASS < 1.0 NG/ML (<3.6)
[2023-09-20 08:16] LABS: CPK CREATINE PHOSPHOKINASE 43 U/L (46-171); ETHYL ALCOHOL (ETHANOL) 0.004 % (0.000-0.010); MB/CK RELATIVE INDEX 2.32 (< OR =4)
[2023-09-20 08:17] LABS: SALICYLATE LEVEL < 3.0 MG/DL (<30)
[2023-09-20] MEDS: ONDANSETRON 4MG 2ML VIAL IV ONE (08:20)
[2023-09-20] MEDS: NS 500 ML IV ONE (08:21)
[2023-09-20 08:32] LABS: BLOOD UREA NITROGEN 7 MG/DL (9-23); CALCIUM LEVEL 9.1 MG/DL (8.5-10.1); CARBON DIOXIDE LEVEL 29 MMOL/L (20-31); CHLORIDE LEVEL 101 MMOL/L (98-107); CREATININE FOR GFR 0.69 MG/DL (0.70-1.30); FREE T4 1.29 NG/DL (0.89-1.76); GLOMERULAR FILTRATION RATE > 60.0 (>60); GLUCOSE, FASTING 116 MG/DL (60-100); POTASSIUM SERUM 3.3 MMOL/L (3.5-5.1); SODIUM LEVEL 139 MMOL/L (136-145); THYROID STIMULATING HORMONE 1.543 uIU/ML (0.55-4.78)
[2023-09-20 10:08] LABS: CK-MB VALUE MASS < 1.0 NG/ML (<3.6)
[2023-09-20 10:09] LABS: CPK CREATINE PHOSPHOKINASE 40 U/L (46-171)
[2023-09-20 12:01] VITALS: BP 152/109; TEMP 98.2; O2SAT 97
== END 2023-09-20 12:05 | disposition home or self-care (01) ==
LOC: M ED 05:55
DX: R53.1 Weakness (principal); I10 Essential (primary) hypertension; F41.9 Anxiety disorder, unspecified; F17.200 Nicotine dependence, unspecified, uncomplicated; F12.90 Cannabis use, unspecified, uncomplicated; Z88.0 Allergy status to penicillin
CPT/HCPCS: 70450; 70496; 70498; 70551; 71045; 80047; 80048; 80143; 82077; 82550; 82553; 83605; 84439; 84443; 84484; 85025; 85610; 85730; 93005; 93041; 94760; 96374; 99285; J2405; Q9967

== ENCOUNTER 2023-09-23 13:08 | Emergency (ER) | payer OTHER ==
[~2023-09-23 13:08] MED LIST changes: +UNIS25TA5 PO
[2023-09-23] MEDS ORDERED: LORazepam 2 MG/ML 1ML VIAL IV PRN (13:25)
[2023-09-23 13:59] LABS: BASO # 0.1 10^3/uL (0.0-0.2); BASO % 0.7 % (0.0-1.0); EOS # 0.1 10^3/uL (0.0-0.5); EOS % 0.6 % (0.0-3.0); HEMATOCRIT 39.4 % (42.0-52.0); HEMOGLOBIN 14.4 g/dl (13.5-17.5); LYMPH # 0.6 10^3/uL (1.5-5.0); LYMPH % 7.5 % (24.0-44.0); MEAN CORPUSCULAR HEMOGLOBIN 36.8 pg (27.0-33.0); MEAN CORPUSCULAR HGB CONC 36.5 g/dl (32.0-36.5); MEAN CORPUSCULAR VOLUME 100.8 fl (80.0-96.0); MONO # 0.4 10^3/uL (0.0-0.8); MONO % 5.4 % (2.0-8.0); NEUTROPHILS # 6.9 10^3/uL (1.5-8.5); NEUTROPHILS % 85.3 % (36.0-66.0); PLATELET COUNT, AUTOMATED 184 10^3/uL (150-450); RED BLOOD COUNT 3.91 10^6/uL (4.30-6.10); WHITE BLOOD COUNT 8.1 10^3/uL (4.0-10.0)
[2023-09-23] MEDS: NS 1,000 ML IV ONE (14:11)
[2023-09-23] MEDS: THIAMINE 100 MG TAB PO SCH (14:12)
[2023-09-23 14:30] LABS: ETHYL ALCOHOL (ETHANOL) < 0.003 % (0.000-0.010)
[2023-09-23 14:31] LABS: SALICYLATE LEVEL < 3.0 MG/DL (<30)
[2023-09-23 14:32] LABS: ALBUMIN 3.5 G/DL (3.2-5.2); ALKALINE PHOSPHATASE 88 U/L (46-116); ALT/SGPT 110 U/L (7.0-40); AST/SGOT 132 U/L (<34); BILIRUBIN,DIRECT 0.3 MG/DL (<0.4); BILIRUBIN,TOTAL 0.7 MG/DL (0.3-1.2); BLOOD UREA NITROGEN 9 MG/DL (9-23); CALCIUM LEVEL 8.4 MG/DL (8.5-10.1); CARBON DIOXIDE LEVEL 27 MMOL/L (20-31); CHLORIDE LEVEL 105 MMOL/L (98-107); CREATININE FOR GFR 0.66 MG/DL (0.70-1.30); GLOMERULAR FILTRATION RATE > 60.0 (>60); GLUCOSE, FASTING 126 MG/DL (60-100); MAGNESIUM LEVEL 1.3 MG/DL (1.8-2.4); POTASSIUM SERUM 3.6 MMOL/L (3.5-5.1); SODIUM LEVEL 139 MMOL/L (136-145); TOTAL PROTEIN 6.2 G/DL (5.7-8.2)
[2023-09-23 14:34] LABS: CPK CREATINE PHOSPHOKINASE 39 U/L (46-171); THYROID STIMULATING HORMONE 1.066 uIU/ML (0.55-4.78)
[2023-09-23] MEDS: MAG SULF 1GM/100ML (MAG RUN) 1 GM in IV 1 EA IV ONE (15:40)
[2023-09-23] MEDS: MAGNESIUM OXIDE 400MG TAB (MAG-OX) PO ONE (15:40)
[2023-09-23 16:25] LABS: AMPHETAMINES LEVEL URINE NEGATIVE (NEGATIVE); BARBITURATES URINE NEGATIVE (NEGATIVE); BENZODIAZEPINES URINE NEGATIVE (NEGATIVE); COCAINE METABOLITE URINE NEGATIVE (NEGATIVE); METHADONE URINE NEGATIVE (NEGATIVE); OPIATES URINE NEGATIVE (NEGATIVE); PHENCYCLIDINE URINE NEGATIVE (NEGATIVE)
[2023-09-23 16:26] LABS: CANNABINOIDS URINE POSITIVE (NEGATIVE)
[2023-09-23] MEDS: LORazepam 2 MG TAB PO PRN (16:32)
[2023-09-23 18:28] VITALS: BP 154/107; TEMP 98.3; O2SAT 99
[2023-09-24] MEDS ORDERED: MULTIVITAMINS/MINERALS THERAP 1 TAB PO SCH (09:00)
[2023-09-24] MEDS ORDERED: FOLIC ACID 1MG TAB PO SCH (09:00)
== END 2023-09-23 18:35 | disposition home or self-care (01) ==
LOC: M ED 13:08
DX: F10.139 Alcohol abuse with withdrawal, unspecified (principal); E83.42 Hypomagnesemia; Z88.0 Allergy status to penicillin
CPT/HCPCS: 80048; 80076; 80143; 80307; 82077; 82550; 83735; 84443; 85025; 93005; 93041; 94760; 96365; 99284; J3475

== ENCOUNTER 2024-03-21 11:23 | Inpatient (IN) | payer OTHER ==
[~2024-03-21] VITALS: Ht 175.3 cm; Wt 70.6 kg
[2024-03-21 12:33] LABS: HEMATOCRIT 44.8 % (42.0-52.0); HEMOGLOBIN 16.7 g/dl (13.5-17.5); MEAN CORPUSCULAR HEMOGLOBIN 36.1 pg (27.0-33.0); RED BLOOD COUNT 4.62 10^6/uL (4.30-6.10); WHITE BLOOD COUNT 4.7 10^3/uL (4.0-10.0)
[2024-03-21 12:48] LABS: ALBUMIN 3.4 G/DL (3.2-5.2); ALKALINE PHOSPHATASE 130 U/L (40-129); ALT/SGPT 134 U/L (7.0-40); AST/SGOT 385 U/L (<34); BILIRUBIN,DIRECT 1.9 MG/DL (<0.4); BILIRUBIN,TOTAL 2.8 MG/DL (0.3-1.2); BLOOD UREA NITROGEN 6 MG/DL (9-23); CALCIUM LEVEL 8.4 MG/DL (8.5-10.1); CARBON DIOXIDE LEVEL 26 MMOL/L (20-31); CHLORIDE LEVEL 96 MMOL/L (98-107); CREATININE FOR GFR 0.56 MG/DL (0.70-1.30); GLOMERULAR FILTRATION RATE > 60.0 (>60); GLUCOSE, FASTING 151 MG/DL (60-100); POTASSIUM SERUM 3.9 MMOL/L (3.5-5.1); SALICYLATE LEVEL < 3.0 MG/DL (<30); SODIUM LEVEL 134 MMOL/L (136-145); TOTAL PROTEIN 7.2 G/DL (5.7-8.2)
[2024-03-21 12:53] LABS: MEAN CORPUSCULAR HGB CONC 37.3 g/dl (32.0-36.5); PLATELET COUNT, AUTOMATED 83 10^3/uL (150-450)
[2024-03-21 13:02] LABS: HEPATITIS B SURFACE ANTIGEN NEGATIVE (NEGATIVE)
[2024-03-21 13:16] LABS: HIV SCREEN CENTAUR SOURCE NEGATIVE (NEGATIVE)
[2024-03-21 13:24] LABS: HEP C VIRUS AB INDEX SOURCE PT < 0.0 INDEX (0.0-0.8)
[2024-03-21 13:28] LABS: ETHYL ALCOHOL (ETHANOL) 0.396 % (0.000-0.010)
[2024-03-21] MEDS: NICOTINE 21MG/24HR 1 EA TRANSDERMAL TD ONE (13:39)
[2024-03-21] MEDS: FOLIC ACID 1MG TAB PO SCH (13:40)
[2024-03-21] MEDS: NS (Normal Saline) 0.9% 1,000 ML IV ONE (13:40)
[2024-03-21] MEDS: THIAMINE 100 MG TAB PO SCH ×2 (13:40→21:44)
[2024-03-21] MEDS: ONDANSETRON 4MG 2ML VIAL IV ONE (17:08)
[2024-03-21 17:43] LABS: AMPHETAMINES LEVEL URINE NEGATIVE (NEGATIVE); BARBITURATES URINE NEGATIVE (NEGATIVE); BENZODIAZEPINES URINE NEGATIVE (NEGATIVE); COCAINE METABOLITE URINE NEGATIVE (NEGATIVE)
[2024-03-21 17:44] LABS: METHADONE URINE NEGATIVE (NEGATIVE); OPIATES URINE NEGATIVE (NEGATIVE); PHENCYCLIDINE URINE NEGATIVE (NEGATIVE)
[2024-03-21 17:46] LABS: CANNABINOIDS URINE POSITIVE (NEGATIVE)
[2024-03-21] MEDS: LORazepam 2 MG TAB PO PRN ×2 (18:10→22:56)
[2024-03-21] MEDS ORDERED: MELA10CA2 PO (18:47)
[2024-03-21] MEDS ORDERED: HOME MED LIST COMPLETE! XX SCH (18:50)
[2024-03-21] MEDS: MULTIVITAMINS/MINERALS THERAP 1 TAB PO SCH (20:17)
[2024-03-21] MEDS: NICOTINE POLACRILEX 2 MG GUM PO PRN (23:18)
[2024-03-21] MEDS: METOCLOPRAMIDE INJ 10MG/2ML VIAL IV PRN (23:19)
[2024-03-22] VITALS (13 sets, daily range): BP systolic 105–154; BP diastolic 69–100; TEMP 97.6–98.5; O2SAT 95–100
[2024-03-22 03:45] LABS: HEMATOCRIT 38.7 % (42.0-52.0); MEAN CORPUSCULAR HEMOGLOBIN 35.8 pg (27.0-33.0); MEAN CORPUSCULAR HGB CONC 36.7 g/dl (32.0-36.5); MEAN CORPUSCULAR VOLUME 97.5 fl (80.0-96.0); RED BLOOD COUNT 3.97 10^6/uL (4.30-6.10); WHITE BLOOD COUNT 5.6 10^3/uL (4.0-10.0)
[2024-03-22 04:06] LABS: HEMOGLOBIN 14.2 g/dl (13.5-17.5); PLATELET COUNT, AUTOMATED 67 10^3/uL (150-450)
[2024-03-22 04:10] LABS: ALKALINE PHOSPHATASE 111 U/L (40-129); ALT/SGPT 117 U/L (7.0-40); AST/SGOT 371 U/L (<34); BILIRUBIN,TOTAL 5.2 MG/DL (0.3-1.2); BLOOD UREA NITROGEN 6 MG/DL (9-23); CALCIUM LEVEL 7.6 MG/DL (8.5-10.1); CARBON DIOXIDE LEVEL 29 MMOL/L (20-31); CHLORIDE LEVEL 96 MMOL/L (98-107); CREATININE FOR GFR 0.65 MG/DL (0.70-1.30); GLOMERULAR FILTRATION RATE > 60.0 (>60); GLUCOSE, FASTING 93 MG/DL (60-100); MAGNESIUM LEVEL 1.2 MG/DL (1.8-2.4); POTASSIUM SERUM 4.5 MMOL/L (3.5-5.1); SODIUM LEVEL 133 MMOL/L (136-145); TOTAL PROTEIN 6.1 G/DL (5.7-8.2)
[2024-03-22] MEDS: MAG SULF 1GM/100ML (MAG RUN) 1 GM in IV 1 EA IV SCH (05:58)
[2024-03-22] MEDS: LORazepam 2 MG/ML 1ML VIAL IV ONE (06:51)
[2024-03-22 06:58] LABS: INR 0.97; PROTHROMBIN TIME 13.2 SECONDS (12.5-14.5)
[2024-03-22] MEDS: NS (Normal Saline) 0.9% 1,000 ML IV SCH ×2 (07:36→10:28)
[2024-03-22] MEDS: MAGNESIUM OXIDE 400MG TAB (MAG-OX) PO SCH (08:26)
[2024-03-22] MEDS: FOLIC ACID 1MG TAB PO SCH (08:27)
[2024-03-22] MEDS: OXAZEPAM 15MG CAP PO SCH (08:27)
[2024-03-22] MEDS: MULTIVITAMINS/MINERALS THERAP 1 TAB PO SCH (08:27)
[2024-03-22] MEDS: hydrALAZINE 20MG/ML 1ML VIAL IV PRN (08:34)
[2024-03-22] MEDS: dexmedeTOMidine 200 MCG in IV 1 EA IV SCH (10:27)
[2024-03-22] MEDS: chlordiazePOXIDE 25 MG CAP PO SCH (10:27)
[2024-03-22 14:44] LABS: ALBUMIN 2.9 G/DL (3.2-5.2); ALKALINE PHOSPHATASE 108 U/L (40-129); ALT/SGPT 107 U/L (7.0-40); AST/SGOT 340 U/L (<34); BILIRUBIN,TOTAL 5.9 MG/DL (0.3-1.2); BLOOD UREA NITROGEN 8 MG/DL (9-23); CALCIUM LEVEL 7.6 MG/DL (8.5-10.1); CARBON DIOXIDE LEVEL 26 MMOL/L (20-31); CHLORIDE LEVEL 92 MMOL/L (98-107); CREATININE FOR GFR 0.59 MG/DL (0.70-1.30); GLOMERULAR FILTRATION RATE > 60.0 (>60); GLUCOSE, FASTING 108 MG/DL (60-100); MAGNESIUM LEVEL 2.2 MG/DL (1.8-2.4); POTASSIUM SERUM 3.6 MMOL/L (3.5-5.1); SODIUM LEVEL 131 MMOL/L (136-145)
[2024-03-22] MEDS: CALCIUM GLUCONATE 1,000 MG in DEXTROSE 5% (D5W) MINI-BAG PLU 100 ML IV ONE (15:26)
[2024-03-22] MEDS: ONDANSETRON 4MG 2ML VIAL IV PRN (22:24)
[2024-03-23] VITALS (32 sets, daily range): BP systolic 103–177; BP diastolic 62–116; TEMP 97–97.6; O2SAT 95–99
[2024-03-23 06:25] LABS: HEMATOCRIT 36.7 % (42.0-52.0); MEAN CORPUSCULAR HEMOGLOBIN 36.1 pg (27.0-33.0); MEAN CORPUSCULAR HGB CONC 35.4 g/dl (32.0-36.5); MEAN CORPUSCULAR VOLUME 101.9 fl (80.0-96.0); WHITE BLOOD COUNT 3.8 10^3/uL (4.0-10.0)
[2024-03-23 06:27] LABS: PLATELET COUNT, AUTOMATED 62 10^3/uL (150-450)
[2024-03-23 06:55] LABS: ALBUMIN 2.6 G/DL (3.2-5.2); ALKALINE PHOSPHATASE 96 U/L (40-129); ALT/SGPT 91 U/L (7.0-40); AST/SGOT 254 U/L (<34); BLOOD UREA NITROGEN 7 MG/DL (9-23); CALCIUM LEVEL 7.8 MG/DL (8.5-10.1); CARBON DIOXIDE LEVEL 26 MMOL/L (20-31); CHLORIDE LEVEL 102 MMOL/L (98-107); CREATININE FOR GFR 0.62 MG/DL (0.70-1.30); GLOMERULAR FILTRATION RATE > 60.0 (>60); GLUCOSE, FASTING 113 MG/DL (60-100); MAGNESIUM LEVEL 2.3 MG/DL (1.8-2.4); POTASSIUM SERUM 3.9 MMOL/L (3.5-5.1); SODIUM LEVEL 138 MMOL/L (136-145); TOTAL PROTEIN 5.6 G/DL (5.7-8.2)
[2024-03-23] MEDS: PANTOPRAZOLE 40MG VIAL IV SCH (08:57)
[2024-03-23] MEDS: NICOTINE 21MG/24HR 1 EA TRANSDERMAL TD PRN (15:55)
[2024-03-24] VITALS (33 sets, daily range): BP systolic 107–178; BP diastolic 60–115; TEMP 97.1–98.9; O2SAT 95–99
[2024-03-24 05:54] LABS: HEMATOCRIT 37.9 % (42.0-52.0); HEMOGLOBIN 13.3 g/dl (13.5-17.5); MEAN CORPUSCULAR HEMOGLOBIN 35.8 pg (27.0-33.0); MEAN CORPUSCULAR HGB CONC 35.1 g/dl (32.0-36.5); MEAN CORPUSCULAR VOLUME 102.2 fl (80.0-96.0); RED BLOOD COUNT 3.71 10^6/uL (4.30-6.10); WHITE BLOOD COUNT 4.5 10^3/uL (4.0-10.0)
[2024-03-24 05:55] LABS: PLATELET COUNT, AUTOMATED 91 10^3/uL (150-450)
[2024-03-24 06:06] LABS: ALBUMIN 2.6 G/DL (3.2-5.2); ALKALINE PHOSPHATASE 101 U/L (40-129); ALT/SGPT 95 U/L (7.0-40); AST/SGOT 242 U/L (<34); BILIRUBIN,TOTAL 6.7 MG/DL (0.3-1.2); BLOOD UREA NITROGEN 6 MG/DL (9-23); CALCIUM LEVEL 7.7 MG/DL (8.5-10.1); CARBON DIOXIDE LEVEL 24 MMOL/L (20-31); CHLORIDE LEVEL 107 MMOL/L (98-107); CREATININE FOR GFR 0.49 MG/DL (0.70-1.30); GLOMERULAR FILTRATION RATE > 60.0 (>60); GLUCOSE, FASTING 82 MG/DL (60-100); POTASSIUM SERUM 4.5 MMOL/L (3.5-5.1); SODIUM LEVEL 140 MMOL/L (136-145); TOTAL PROTEIN 5.7 G/DL (5.7-8.2)
[2024-03-24 08:16] LABS: MAGNESIUM LEVEL 1.8 MG/DL (1.8-2.4)
[2024-03-24 10:08] LABS: BILIRUBIN,DIRECT 4.7 MG/DL (<0.4)
[2024-03-24 10:45] LABS: LDH LACTATE DEHYDROGENASE 431 U/L (120-246)
[2024-03-24] MEDS: METOPROLOL TART 25 MG TABLET PO ONE (18:52)
[2024-03-25] VITALS: BP 143/91; TEMP 98.8; O2SAT 96
[2024-03-25 04:00] VITALS: BP 130/84
[2024-03-25 05:58] LABS: HEMATOCRIT 36.2 % (42.0-52.0); HEMOGLOBIN 12.9 g/dl (13.5-17.5); MEAN CORPUSCULAR HEMOGLOBIN 35.9 pg (27.0-33.0); MEAN CORPUSCULAR HGB CONC 35.6 g/dl (32.0-36.5); MEAN CORPUSCULAR VOLUME 100.8 fl (80.0-96.0); PLATELET COUNT, AUTOMATED 129 10^3/uL (150-450); RED BLOOD COUNT 3.59 10^6/uL (4.30-6.10); WHITE BLOOD COUNT 6.4 10^3/uL (4.0-10.0)
[2024-03-25 06:54] LABS: ALBUMIN 2.7 G/DL (3.2-5.2); ALKALINE PHOSPHATASE 110 U/L (40-129); ALT/SGPT 89 U/L (7.0-40); AST/SGOT 193 U/L (<34); BILIRUBIN,TOTAL 8.1 MG/DL (0.3-1.2); BLOOD UREA NITROGEN < 5 MG/DL (9-23); CALCIUM LEVEL 7.8 MG/DL (8.5-10.1); CARBON DIOXIDE LEVEL 23 MMOL/L (20-31); CHLORIDE LEVEL 102 MMOL/L (98-107); CREATININE FOR GFR 0.47 MG/DL (0.70-1.30); GLOMERULAR FILTRATION RATE > 60.0 (>60); GLUCOSE, FASTING 89 MG/DL (60-100); MAGNESIUM LEVEL 1.8 MG/DL (1.8-2.4); POTASSIUM SERUM 3.2 MMOL/L (3.5-5.1); SODIUM LEVEL 138 MMOL/L (136-145); TOTAL PROTEIN 5.8 G/DL (5.7-8.2)
[2024-03-25 07:53] VITALS: BP 160/109; TEMP 98.2; O2SAT 97
[2024-03-25] MEDS: OXAZEPAM 10MG CAP PO SCH (07:56)
[2024-03-25 12:51] VITALS: BP 147/93; TEMP 98.4; O2SAT 95
[2024-03-25] MEDS: POTASSIUM CHLORIDE 10MEQ SR TABLET PO ONE (13:35)
[2024-03-25] MEDS: KCL 10MEQ/100ML SWI (KRUN) 10 MEQ in IV 1 EA IV SCH (13:35)
[2024-03-25 16:00] VITALS: BP 169/109; TEMP 98.3; O2SAT 96
[2024-03-25 18:35] LABS: BLOOD UREA NITROGEN < 5 MG/DL (9-23); CALCIUM LEVEL 8.1 MG/DL (8.5-10.1); CARBON DIOXIDE LEVEL 29 MMOL/L (20-31); CHLORIDE LEVEL 102 MMOL/L (98-107); CREATININE FOR GFR 0.49 MG/DL (0.70-1.30); GLOMERULAR FILTRATION RATE > 60.0 (>60); GLUCOSE, FASTING 129 MG/DL (60-100); POTASSIUM SERUM 3.4 MMOL/L (3.5-5.1); SODIUM LEVEL 137 MMOL/L (136-145)
[2024-03-25] MEDS: RAMELTEON 8 MG TAB (ROZEREM) PO SCH (20:33)
[2024-03-26] VITALS (13 sets, daily range): BP systolic 121–152; BP diastolic 81–98; TEMP 96.7–98.8; O2SAT 92–98
[2024-03-26] MEDS: METOPROLOL TART 12.5 MG PER 1/2 TAB PO SCH (09:03)
[2024-03-26 09:35] LABS: ALBUMIN 2.5 G/DL (3.2-5.2); ALKALINE PHOSPHATASE 112 U/L (40-129); ALT/SGPT 77 U/L (7.0-40); AST/SGOT 140 U/L (<34); BILIRUBIN,TOTAL 8.7 MG/DL (0.3-1.2); BLOOD UREA NITROGEN < 5 MG/DL (9-23); CALCIUM LEVEL 8.6 MG/DL (8.5-10.1); CARBON DIOXIDE LEVEL 26 MMOL/L (20-31); CHLORIDE LEVEL 103 MMOL/L (98-107); CREATININE FOR GFR 0.56 MG/DL (0.70-1.30); GLOMERULAR FILTRATION RATE > 60.0 (>60); GLUCOSE, FASTING 71 MG/DL (60-100); SODIUM LEVEL 140 MMOL/L (136-145); TOTAL PROTEIN 5.5 G/DL (5.7-8.2)
[2024-03-26] MEDS ORDERED: ISOVUE-370 76% 100ML VIAL As Ordered ONE (10:55)
[2024-03-26 11:11] LABS: BILIRUBIN,DIRECT 6.5 MG/DL (<0.4)
[2024-03-26] MEDS: HEPARIN SOD (PORCINE) 5000UNITS/ML 1ML VIAL/SYRINGE SC SCH (20:53)
[2024-03-27] VITALS (10 sets, daily range): BP systolic 121–143; BP diastolic 81–92; TEMP 97.5–98.1; O2SAT 93–97
[2024-03-27 08:04] LABS: ALBUMIN 2.4 G/DL (3.2-5.2); ALKALINE PHOSPHATASE 108 U/L (40-129); ALT/SGPT 69 U/L (7.0-40); AST/SGOT 120 U/L (<34); BILIRUBIN,DIRECT 6.1 MG/DL (<0.4); BILIRUBIN,TOTAL 8.1 MG/DL (0.3-1.2); BLOOD UREA NITROGEN < 5 MG/DL (9-23); CALCIUM LEVEL 8.3 MG/DL (8.5-10.1); CARBON DIOXIDE LEVEL 29 MMOL/L (20-31); CHLORIDE LEVEL 102 MMOL/L (98-107); CREATININE FOR GFR 0.53 MG/DL (0.70-1.30); GLOMERULAR FILTRATION RATE > 60.0 (>60); GLUCOSE, FASTING 95 MG/DL (60-100); POTASSIUM SERUM 3.7 MMOL/L (3.5-5.1); SODIUM LEVEL 138 MMOL/L (136-145); TOTAL PROTEIN 5.3 G/DL (5.7-8.2)
[2024-03-27] MEDS: NICOTINE 21MG/24HR 1 EA TRANSDERMAL TD SCH (08:24)
[2024-03-28 04:00] VITALS: BP 106/70; TEMP 97.7; O2SAT 96
[2024-03-28 04:10] VITALS: BP 108/74; TEMP 97.7; O2SAT 95
[2024-03-28 08:00] VITALS: BP 108/74
[2024-03-28 09:00] VITALS: BP 108/74
[2024-03-28 12:00] VITALS: BP 110/78
[2024-03-28 12:13] LABS: ALBUMIN 2.7 G/DL (3.2-5.2); BILIRUBIN,DIRECT 7.7 MG/DL (<0.4); BILIRUBIN,TOTAL 10.3 MG/DL (0.3-1.2); TOTAL PROTEIN 6.1 G/DL (5.7-8.2)
[2024-03-28 12:53] VITALS: BP 117/82; TEMP 97.9; O2SAT 93
[2024-03-28 16:52] LABS: IMMUNOGLOBULIN A 401.7 MG/DL (40-350); IMMUNOGLOBULIN M 55.9 MG/DL (50-300)
[2024-03-28 16:59] LABS: PERCENT SATURATION 49.2 % (19.7-50.0)
[2024-03-29] MEDS ORDERED: MELATAB3 PO (17:45)
[2024-03-31 15:49] LABS: ANA SCREEN, IFA NEGATIVE (NEGATIVE)
[2024-03-31 18:32] LABS: ANTI-MITOCHONDRIAL ANTIBODY NEGATIVE (NEGATIVE)
[2024-04-01 14:23] LABS: LIVER-KIDNEY MICROSOMAL ABY <= 20.0 U (<=20.0)
[2024-04-02 00:37] LABS: ANCA SCREEN Negative (Negative)
== END 2024-03-28 17:25 | disposition left against medical advice (07) | DRG 770 ==
LOC: EDBD 11:23 → M ED 11:23 → M ED INP 11:24 → M ICU 03-22 09:49 → OBSVTOIN 03-22 10:12 → M MS5PR 03-26 17:05
PROVIDERS: ADMIT Student in an Organized Health Care Education/Training Program; ATTEND Student in an Organized Health Care Education/Training Program
DX: F10.231 Alcohol dependence with withdrawal delirium (principal); D69.59 Other secondary thrombocytopenia; E83.42 Hypomagnesemia; E87.1 Hypo-osmolality and hyponatremia; E86.0 Dehydration; K76.0 Fatty (change of) liver, not elsewhere classified; K70.10 Alcoholic hepatitis without ascites; E80.6 Other disorders of bilirubin metabolism; F41.9 Anxiety disorder, unspecified; E87.6 Hypokalemia; I16.0 Hypertensive urgency; Z88.0 Allergy status to penicillin

== ENCOUNTER 2024-03-29 15:00 | Emergency (ER) | payer OTHER ==
[~2024-03-29] VITALS: Ht 144.8 cm; Wt 69.2 kg
[~2024-03-29 15:00] MED LIST changes: +MELA10CA2 PO
[2024-03-29 16:05] LABS: BASO # 0.1 10^3/uL (0.0-0.2); BASO % 0.9 % (0.0-1.0); EOS # 0.1 10^3/uL (0.0-0.5); EOS % 0.9 % (0.0-3.0); HEMATOCRIT 38.3 % (42.0-52.0); HEMOGLOBIN 13.6 g/dl (13.5-17.5); LYMPH # 0.8 10^3/uL (1.5-5.0); LYMPH % 11.9 % (24.0-44.0); MEAN CORPUSCULAR HEMOGLOBIN 36.5 pg (27.0-33.0); MEAN CORPUSCULAR HGB CONC 35.5 g/dl (32.0-36.5); MEAN CORPUSCULAR VOLUME 102.7 fl (80.0-96.0); MONO # 1.2 10^3/uL (0.0-0.8); MONO % 17.2 % (2.0-8.0); NEUTROPHILS # 4.6 10^3/uL (1.5-8.5); NEUTROPHILS % 67.1 % (36.0-66.0); PLATELET COUNT, AUTOMATED 347 10^3/uL (150-450); RED BLOOD COUNT 3.73 10^6/uL (4.30-6.10); WHITE BLOOD COUNT 6.9 10^3/uL (4.0-10.0)
[2024-03-29 16:36] LABS: ETHYL ALCOHOL (ETHANOL) < 0.003 % (0.000-0.010)
[2024-03-29 16:48] LABS: ALBUMIN 2.6 G/DL (3.2-5.2); ALKALINE PHOSPHATASE 110 U/L (40-129); ALT/SGPT 85 U/L (7.0-40); AST/SGOT 191 U/L (<34); BLOOD UREA NITROGEN 12 MG/DL (9-23); CARBON DIOXIDE LEVEL 26 MMOL/L (20-31); CHLORIDE LEVEL 99 MMOL/L (98-107); CREATININE FOR GFR 1.05 MG/DL (0.70-1.30); GLOMERULAR FILTRATION RATE > 60.0 (>60); GLUCOSE, FASTING 171 MG/DL (60-100); LIPASE 144 U/L (12-53); SODIUM LEVEL 136 MMOL/L (136-145); TOTAL PROTEIN 6.1 G/DL (5.7-8.2)
[2024-03-29] MEDS ORDERED: LORazepam 2 MG/ML 1ML VIAL IV ONE (17:40)
[2024-03-29] MEDS ORDERED: MELATAB3 PO (17:45)
[2024-03-29] MEDS ORDERED: HOME MED LIST COMPLETE! XX SCH (17:50)
[2024-03-29] MEDS: LORazepam 2 MG TAB PO ONE ×3 (17:59→22:40)
[2024-03-29 19:38] LABS: INR 0.94; PARTIAL THROMBOPLASTIN TIME 31.2 SECONDS (24.8-34.2); PROTHROMBIN TIME 12.8 SECONDS (12.5-14.5)
[2024-03-29] MEDS: LORazepam 2 MG/ML 1ML VIAL IV STA (22:52)
[2024-03-30] MEDS ORDERED: OXAZ15CA4 PO (04:54)
[2024-03-30 05:06] VITALS: BP 115/73; O2SAT 100
[2024-03-30 05:23] VITALS: TEMP 96.1
== END 2024-03-30 05:23 | disposition home or self-care (01) ==
LOC: M ED 15:00
DX: K70.10 Alcoholic hepatitis without ascites (principal); R74.01 Elevation of levels of liver transaminase levels; F10.130 Alcohol abuse with withdrawal, uncomplicated; Z88.1 Allergy status to other antibiotic agents; Z79.899 Other long term (current) drug therapy
CPT/HCPCS: 74181; 80048; 80076; 82077; 83690; 85025; 85610; 85730; 93041; 94760; 96374; 99285; J2060

== ENCOUNTER 2024-04-07 12:27 | Inpatient (IN) | payer OTHER ==
[~2024-04-07] VITALS: Ht 175.3 cm; Wt 71.9 kg
[~2024-04-07 12:27] MED LIST changes: +MELATAB3 PO; +OXAZ15CA4 PO
[2024-04-07 13:10] LABS: HEMATOCRIT 39.9 % (42.0-52.0); HEMOGLOBIN 13.8 g/dl (13.5-17.5); MEAN CORPUSCULAR HEMOGLOBIN 35.8 pg (27.0-33.0); MEAN CORPUSCULAR HGB CONC 34.6 g/dl (32.0-36.5); MEAN CORPUSCULAR VOLUME 103.4 fl (80.0-96.0); PLATELET COUNT, AUTOMATED 577 10^3/uL (150-450); RED BLOOD COUNT 3.86 10^6/uL (4.30-6.10); WHITE BLOOD COUNT 16.5 10^3/uL (4.0-10.0)
[2024-04-07] MEDS: NICOTINE 21MG/24HR 1 EA TRANSDERMAL TD ONE (13:19)
[2024-04-07 13:25] LABS: ANISOCYTOSIS 1+; ATYPICAL LYMPH 2 % (0-5); BASOPHILS 1 % (0-1); EOSINOPHILS 1 % (0-3); LYMPHOCYTES 7 % (16-44); METAMYELOCYTES 1 % (0-0); MONOCYTES 6 % (0-5); NEUTROPHILS 79 % (28-66); PLATELET ESTIMATE INCREASED (NORMAL); POIKILOCYTOSIS 1+; POLYCHROMASIA 1+; SPHEROCYTES 1+; TARGET CELLS 1+
[2024-04-07 13:30] LABS: PARTIAL THROMBOPLASTIN TIME 33.3 SECONDS (24.8-34.2); PROTHROMBIN TIME 13.5 SECONDS (12.5-14.5)
[2024-04-07 13:41] LABS: ETHYL ALCOHOL (ETHANOL) 0.003 % (0.000-0.010)
[2024-04-07 13:55] LABS: ALBUMIN 2.3 G/DL (3.2-5.2); ALKALINE PHOSPHATASE 147 U/L (40-129); ALT/SGPT 78 U/L (7.0-40); AST/SGOT 187 U/L (<34); BILIRUBIN,DIRECT > 15.0 MG/DL (<0.4); BILIRUBIN,TOTAL 30.8 MG/DL (0.3-1.2); BLOOD UREA NITROGEN 14 MG/DL (9-23); CALCIUM LEVEL 9.2 MG/DL (8.5-10.1); CARBON DIOXIDE LEVEL 26 MMOL/L (20-31); CHLORIDE LEVEL 99 MMOL/L (98-107); CREATININE FOR GFR 1.34 MG/DL (0.70-1.30); GLOMERULAR FILTRATION RATE > 60.0 (>60); GLUCOSE, FASTING 110 MG/DL (60-100); POTASSIUM SERUM 3.7 MMOL/L (3.5-5.1); SALICYLATE LEVEL < 3.0 MG/DL (<30); SODIUM LEVEL 137 MMOL/L (136-145); TOTAL PROTEIN 6.3 G/DL (5.7-8.2)
[2024-04-07] MEDS ORDERED: diphenhydrAMINE 50MG/ML VIAL IM STA (16:00)
[2024-04-07] MEDS: diphenhydrAMINE 50MG/ML VIAL IV STA ×2 (16:05→18:52)
[2024-04-07 16:27] LABS: AMPHETAMINES LEVEL URINE NEGATIVE (NEGATIVE); BARBITURATES URINE NEGATIVE (NEGATIVE); COCAINE METABOLITE URINE NEGATIVE (NEGATIVE); METHADONE URINE NEGATIVE (NEGATIVE); OPIATES URINE NEGATIVE (NEGATIVE); PHENCYCLIDINE URINE NEGATIVE (NEGATIVE)
[2024-04-07 16:29] LABS: APPEARANCE, URINE MANUAL HAZY (CLEAR); COLOR, URINE MANUAL BROWN (YELLOW)
[2024-04-07 16:31] LABS: BILIRUBIN, URINE MANUAL 3+ (NEGATIVE); BLOOD URINE MANUAL POSITIVE (NEGATIVE); GLUCOSE, URINE (UA) MANUAL OBSCURED mg/dL (NEGATIVE); KETONE, URINE MANUAL OBSCURED mg/dL (NEGATIVE); LEUKOCYTE ESTERASE, URINE MAN OBSCURED (NEGATIVE); NITRITE, URINE MANUAL OBSCURED (NEGATIVE); PROTEIN, URINE MANUAL OBSCURED mg/dL (NEGATIVE); UROBILINOGEN, URINE MANUAL OBSCURED mg/dl (NORMAL)
[2024-04-07 16:33] LABS: BENZODIAZEPINES URINE POSITIVE (NEGATIVE); CANNABINOIDS URINE POSITIVE (NEGATIVE)
[2024-04-07 16:39] LABS: BACTERIA, URINE SMALL AMOUNT; RBC, URINE 0-1 /hpf (0-3); SQUAMOUS EPITHELIAL CELL URINE MOD AMOUNT /hpf (SMALL AMT)
[2024-04-07 16:43] LABS: AMORPHOUS SEDIMENT, URINE LARGE AMOUNT (NEGATIVE); GRANULAR CAST, URINE 0-1 /lpf; RENAL EPITHELIAL CELLS, URINE SMALL AMOUNT /hpf; TRANSITIONAL EPI CELLS, URINE LARGE AMOUNT /hpf
[2024-04-07] MEDS: LORazepam 1 MG TAB PO STA (19:05)
[2024-04-07] MEDS ORDERED: OXAZ15CA4 PO (23:13)
[2024-04-07] MEDS ORDERED: HOME MED LIST COMPLETE! XX SCH (23:15)
[2024-04-08] VITALS (8 sets, daily range): BP systolic 94–137; BP diastolic 64–102; TEMP 97.9–100.5; O2SAT 95–98
[2024-04-08] MEDS: THIAMINE 100 MG TAB PO SCH (00:01)
[2024-04-08] MEDS: cefTRIAXone SOD 1 GM in DEXTROSE 5% (D5W) ADV/MINI-BAG 50 ML IV SCH (00:17)
[2024-04-08] MEDS: RAMELTEON 8 MG TAB (ROZEREM) PO PRN (00:17)
[2024-04-08] MEDS: NS 500 ML IV ONE (02:39)
[2024-04-08] MEDS: LACTULOSE 20GM/30ML SYRUP UDC PO SCH (09:12)
[2024-04-08] MEDS: MULTIVITAMINS/MINERALS THERAP 1 TAB PO SCH (09:13)
[2024-04-08] MEDS: rifAXIMin 550 MG TAB (XIFAXAN) PO SCH (09:13)
[2024-04-08] MEDS: FOLIC ACID 1MG TAB PO SCH (09:13)
[2024-04-08] MEDS: OXAZEPAM 15MG CAP PO PRN (09:52)
[2024-04-08] MEDS ORDERED: MOM 30ML SUSPENSION UDC PO PRN (11:35)
[2024-04-08] MEDS ORDERED: ACETAMINOPHEN 325 MG TAB PO PRN (11:35)
[2024-04-08] MEDS: LR 1,000 ML IV SCH (11:57)
[2024-04-08 12:20] LABS: ALBUMIN 1.8 G/DL (3.2-5.2); CALCIUM LEVEL 8.5 MG/DL (8.5-10.1); CREATININE FOR GFR 1.41 MG/DL (0.70-1.30); GLOMERULAR FILTRATION RATE 59.6 (>60); POTASSIUM SERUM 3.6 MMOL/L (3.5-5.1); TOTAL PROTEIN 5.4 G/DL (5.7-8.2)
[2024-04-08 12:21] LABS: HEMATOCRIT 33.5 % (42.0-52.0); HEMOGLOBIN 11.9 g/dl (13.5-17.5); MEAN CORPUSCULAR HEMOGLOBIN 36.8 pg (27.0-33.0); MEAN CORPUSCULAR HGB CONC 35.5 g/dl (32.0-36.5); MEAN CORPUSCULAR VOLUME 103.7 fl (80.0-96.0); PLATELET COUNT, AUTOMATED 480 10^3/uL (150-450); RED BLOOD COUNT 3.23 10^6/uL (4.30-6.10); WHITE BLOOD COUNT 15.5 10^3/uL (4.0-10.0)
[2024-04-08 12:27] LABS: BILIRUBIN,TOTAL 26.5 MG/DL (0.3-1.2)
[2024-04-08 12:34] LABS: ERYTHROCYTE SEDIMENTATION RATE 103 mm/hr (0-15)
[2024-04-08 12:53] LABS: ATYPICAL LYMPH 3 % (0-5); BASOPHILS 1 % (0-1); LYMPHOCYTES 9 % (16-44); METAMYELOCYTES 1 % (0-0); MONOCYTES 3 % (0-5); MYELOCYTES 3 % (0-0); NEUTROPHILS 66 % (28-66)
[2024-04-08 12:55] LABS: PLATELET ESTIMATE INCREASED (NORMAL)
[2024-04-08 12:59] LABS: GIANT PLATELETS 1+
[2024-04-08 13:10] LABS: IRON (FE) 119 UG/DL (65-175)
[2024-04-08 13:24] LABS: HEPATITIS B SURFACE ANTIGEN NEGATIVE (NEGATIVE)
[2024-04-08 13:37] LABS: HIV 1&2 SCREEN NEGATIVE (NEGATIVE)
[2024-04-08 13:46] LABS: HEPATITIS B CORE ANTIBODY IGM NEGATIVE (NEGATIVE); HEPATITIS C VIRUS ABY INDEX 0.12 INDEX (<0.8)
[2024-04-08] MEDS: THIAMINE INJection 500 MG in NS 100 ML IV SCH ×2 (14:47→23:04)
[2024-04-08] MEDS: hydrOXYzine 50 MG TAB PO PRN (14:47)
[2024-04-08 15:40] LABS: BILIRUBIN,DIRECT 18.5 MG/DL (<0.4); FERRITIN 1795.5 NG/ML (10.5-307.3); PERCENT SATURATION 53.8 % (19.7-50.0); TOTAL IRON BINDING CAPACITY 221 UG/DL (250-425)
[2024-04-08] MEDS: CHOLESTYRAMINE 4GM PWD PKT PO SCH (16:08)
[2024-04-08] MEDS: metroNIDAZOLE 500 MG in IV 1 EA IV SCH (18:11)
[2024-04-08] MEDS: DOCUSATE SODIUM 100MG CAPSULE PO SCH (21:30)
[2024-04-08] MEDS: HEPARIN SOD (PORCINE) 5000UNITS/ML 1ML VIAL/SYRINGE SQ SCH (21:45)
[2024-04-08] MEDS: LORazepam 2 MG TAB PO PRN (21:46)
[2024-04-09] VITALS (12 sets, daily range): BP systolic 98–127; BP diastolic 61–87; TEMP 96.4–99.6; O2SAT 93–98
[2024-04-09 05:22] LABS: BASO % 0.1 % (0.0-1.0); EOS # 0.3 10^3/uL (0.0-0.5); HEMATOCRIT 28.4 % (42.0-52.0); LYMPH # 1.2 10^3/uL (1.5-5.0); LYMPH % 8.1 % (24.0-44.0); MEAN CORPUSCULAR HEMOGLOBIN 35.3 pg (27.0-33.0); MEAN CORPUSCULAR HGB CONC 34.5 g/dl (32.0-36.5); MEAN CORPUSCULAR VOLUME 102.2 fl (80.0-96.0); MONO # 1.3 10^3/uL (0.0-0.8); MONO % 8.3 % (2.0-8.0); NEUTROPHILS # 11.3 10^3/uL (1.5-8.5); NEUTROPHILS % 74.4 % (36.0-66.0); PLATELET COUNT, AUTOMATED 400 10^3/uL (150-450); RED BLOOD COUNT 2.78 10^6/uL (4.30-6.10); WHITE BLOOD COUNT 15.1 10^3/uL (4.0-10.0)
[2024-04-09 05:28] LABS: INR 1.1; PROTHROMBIN TIME 14.5 SECONDS (12.5-14.5)
[2024-04-09 05:37] LABS: HEMOGLOBIN 9.8 g/dl (13.5-17.5)
[2024-04-09 06:00] LABS: ALBUMIN 1.6 G/DL (3.2-5.2); ALKALINE PHOSPHATASE 108 U/L (40-129); ALT/SGPT 50 U/L (7.0-40); AST/SGOT 118 U/L (<34); BILIRUBIN,DIRECT 16.3 MG/DL (<0.4); BILIRUBIN,TOTAL 22.5 MG/DL (0.3-1.2); TOTAL PROTEIN 4.3 G/DL (5.7-8.2)
[2024-04-09 06:48] LABS: BLOOD UREA NITROGEN 16 MG/DL (9-23); CALCIUM LEVEL 7.8 MG/DL (8.5-10.1); CARBON DIOXIDE LEVEL 22 MMOL/L (20-31); CHLORIDE LEVEL 105 MMOL/L (98-107); GLOMERULAR FILTRATION RATE > 60.0 (>60); GLUCOSE, FASTING 89 MG/DL (60-100); POTASSIUM SERUM 3.5 MMOL/L (3.5-5.1); SODIUM LEVEL 139 MMOL/L (136-145)
[2024-04-09] MEDS: LR 1,000 ML IV SCH (08:14)
[2024-04-09] MEDS ORDERED: cefTRIAXone SOD 2 GM in DEXTROSE 5% (D5W) ADV/MINI-BAG 50 ML IV SCH (12:00)
[2024-04-09] MEDS: POTASSIUM CHLORIDE 10MEQ SR TABLET PO ONE (14:04)
[2024-04-10] VITALS (7 sets, daily range): BP systolic 105–134; BP diastolic 67–92; TEMP 97.5–98.4; O2SAT 94–97
[2024-04-10 05:51] LABS: INR 1.14; PROTHROMBIN TIME 14.9 SECONDS (12.5-14.5)
[2024-04-10 05:56] LABS: BASO % 0.2 % (0.0-1.0); EOS # 0.3 10^3/uL (0.0-0.5); EOS % 1.9 % (0.0-3.0); HEMATOCRIT 28.7 % (42.0-52.0); HEMOGLOBIN 10.1 g/dl (13.5-17.5); LYMPH # 1.5 10^3/uL (1.5-5.0); MEAN CORPUSCULAR HEMOGLOBIN 35.9 pg (27.0-33.0); MEAN CORPUSCULAR HGB CONC 35.2 g/dl (32.0-36.5); MEAN CORPUSCULAR VOLUME 102.1 fl (80.0-96.0); MONO % 6.7 % (2.0-8.0); NEUTROPHILS % 74.5 % (36.0-66.0); PLATELET COUNT, AUTOMATED 389 10^3/uL (150-450); RED BLOOD COUNT 2.81 10^6/uL (4.30-6.10); WHITE BLOOD COUNT 14.8 10^3/uL (4.0-10.0)
[2024-04-10 06:31] LABS: ALBUMIN 1.8 G/DL (3.2-5.2); ALKALINE PHOSPHATASE 100 U/L (40-129); ALT/SGPT 44 U/L (7.0-40); AST/SGOT 106 U/L (<34); BILIRUBIN,DIRECT > 15.0 MG/DL (<0.4); BILIRUBIN,TOTAL 24.2 MG/DL (0.3-1.2); BLOOD UREA NITROGEN 13 MG/DL (9-23); CARBON DIOXIDE LEVEL 23 MMOL/L (20-31); CHLORIDE LEVEL 108 MMOL/L (98-107); CREATININE FOR GFR 1.43 MG/DL (0.70-1.30); GLOMERULAR FILTRATION RATE 58.6 (>60); GLUCOSE, FASTING 75 MG/DL (60-100); POTASSIUM SERUM 3.9 MMOL/L (3.5-5.1); SODIUM LEVEL 143 MMOL/L (136-145); TOTAL PROTEIN 4.5 G/DL (5.7-8.2)
[2024-04-10] MEDS: prednisoLONE (PRELONE) 15MG/5ML SYRUP PO SCH (13:38)
[2024-04-10 15:20] LABS: ANA SCREEN, IFA NEGATIVE (NEGATIVE)
[2024-04-10] MEDS: diphenhydrAMINE 50MG/ML VIAL IV PRN (20:46)
[2024-04-11] VITALS (18 sets, daily range): BP systolic 114–144; BP diastolic 57–103; TEMP 97.3–98.1; O2SAT 94–99
[2024-04-11 05:39] LABS: HEMATOCRIT 28.9 % (42.0-52.0); MEAN CORPUSCULAR HEMOGLOBIN 35.5 pg (27.0-33.0); MEAN CORPUSCULAR HGB CONC 34.6 g/dl (32.0-36.5); MEAN CORPUSCULAR VOLUME 102.5 fl (80.0-96.0); PLATELET COUNT, AUTOMATED 417 10^3/uL (150-450); RED BLOOD COUNT 2.82 10^6/uL (4.30-6.10); WHITE BLOOD COUNT 17.6 10^3/uL (4.0-10.0)
[2024-04-11 06:14] LABS: INR 1.23; PROTHROMBIN TIME 15.8 SECONDS (12.5-14.5)
[2024-04-11 06:31] LABS: ALBUMIN 2.1 G/DL (3.2-5.2); ALKALINE PHOSPHATASE 97 U/L (40-129); ALT/SGPT 45 U/L (7.0-40); AST/SGOT 84 U/L (<34); BILIRUBIN,DIRECT 16.4 MG/DL (<0.4); BLOOD UREA NITROGEN 17 MG/DL (9-23); CALCIUM LEVEL 8.4 MG/DL (8.5-10.1); CARBON DIOXIDE LEVEL 23 MMOL/L (20-31); CHLORIDE LEVEL 112 MMOL/L (98-107); CREATININE FOR GFR 1.37 MG/DL (0.70-1.30); GLOMERULAR FILTRATION RATE > 60.0 (>60); GLUCOSE, FASTING 154 MG/DL (60-100); POTASSIUM SERUM 4.2 MMOL/L (3.5-5.1); SODIUM LEVEL 142 MMOL/L (136-145); TOTAL PROTEIN 4.9 G/DL (5.7-8.2)
[2024-04-11 06:59] LABS: BASOPHILS 1 % (0-1); LYMPHOCYTES 9 % (16-44); METAMYELOCYTES 3 % (0-0); MONOCYTES 2 % (0-5); MYELOCYTES 2 % (0-0); NEUTROPHILS 82 % (28-66)
[2024-04-11 07:00] LABS: ANISOCYTOSIS 1+; PLATELET ESTIMATE NORMAL (NORMAL)
[2024-04-11 08:32] LABS: HCV RNA QUANTITATION <15 NOT DETECTED IU/mL (NOT DETECTED); HCV RNA log10 <1.18 NOT DETECTED Log IU/mL (NOT DETECTED)
[2024-04-11] MEDS: LORazepam 2 MG TAB PO ONE (11:05)
[2024-04-11 14:48] LABS: CYTOMEGALOVIRUS ANTIBODY IGG < 0.60 U/mL (<0.60); CYTOMEGALOVIRUS IgM ANTIBODY < 30.00 AU/mL (<30.00)
[2024-04-11 15:53] LABS: EBV PCR QUAL Detected (Not Detected); EBV SOURCE QUAL Whole Blood
[2024-04-11] MEDS: CHOLESTYRAMINE 4GM PWD PKT PO SCH (16:00)
[2024-04-11] MEDS: ESCITALOPRAM OXALATE 5MG TABLET (LEXAPRO) PO ONE (16:30)
[2024-04-11 17:33] LABS: CK-MB VALUE MASS < 1.0 NG/ML (<3.6)
[2024-04-11 17:37] LABS: HDL CHOLESTEROL 4.99999 MG/DL (>40); LDL CHOLESTEROL 48.40001 MG/DL (<100); NON-HDL-C 122.00001 MG/DL
[2024-04-11] MEDS: ASPIRIN 81MG CHEW TABLET PO ONE (17:48)
[2024-04-11] MEDS: CARVedilol 6.25 MG TAB PO ONE (17:48)
[2024-04-11] MEDS: ATORVASTATIN 20 MG TAB PO ONE (17:48)
[2024-04-11] MEDS: hydrOXYzine 50 MG TAB PO SCH (17:51)
[2024-04-11 18:33] LABS: CPK CREATINE PHOSPHOKINASE 21 U/L (46-171); MB/CK RELATIVE INDEX 4.76 (< OR =4)
[2024-04-11] MEDS: diphenhydrAMINE CREAM 30GM TOP SCH (20:08)
[2024-04-11 22:11] LABS: CK-MB VALUE MASS < 1.0 NG/ML (<3.6)
[2024-04-11 22:12] LABS: CPK CREATINE PHOSPHOKINASE < 15 U/L (46-171)
[2024-04-12] VITALS (9 sets, daily range): BP systolic 112–142; BP diastolic 66–97; TEMP 97.7–98.1; O2SAT 92–96
[2024-04-12 06:07] LABS: BASO # 0.1 10^3/uL (0.0-0.2); BASO % 0.3 % (0.0-1.0); EOS # 0.1 10^3/uL (0.0-0.5); EOS % 0.6 % (0.0-3.0); HEMATOCRIT 25.7 % (42.0-52.0); LYMPH # 1.9 10^3/uL (1.5-5.0); LYMPH % 11.4 % (24.0-44.0); MEAN CORPUSCULAR HEMOGLOBIN 36.1 pg (27.0-33.0); MEAN CORPUSCULAR VOLUME 103.2 fl (80.0-96.0); MONO # 0.8 10^3/uL (0.0-0.8); MONO % 4.5 % (2.0-8.0); NEUTROPHILS # 13.1 10^3/uL (1.5-8.5); NEUTROPHILS % 77.3 % (36.0-66.0); PLATELET COUNT, AUTOMATED 411 10^3/uL (150-450); RED BLOOD COUNT 2.49 10^6/uL (4.30-6.10)
[2024-04-12 06:22] LABS: INR 1.2; PROTHROMBIN TIME 15.5 SECONDS (12.5-14.5)
[2024-04-12 06:29] LABS: CK-MB VALUE MASS < 1.0 NG/ML (<3.6)
[2024-04-12 06:30] LABS: CPK CREATINE PHOSPHOKINASE < 15 U/L (46-171)
[2024-04-12 06:33] LABS: ALBUMIN 2.3 G/DL (3.2-5.2); BILIRUBIN,DIRECT 10.7 MG/DL (<0.4); BILIRUBIN,TOTAL 14.2 MG/DL (0.3-1.2); CALCIUM LEVEL 8.2 MG/DL (8.5-10.1); CREATININE FOR GFR 1.43 MG/DL (0.70-1.30); GLOMERULAR FILTRATION RATE 58.6 (>60); POTASSIUM SERUM 4.1 MMOL/L (3.5-5.1); TOTAL PROTEIN 4.8 G/DL (5.7-8.2)
[2024-04-12 08:20] LABS: C REACTIVE PROTEIN QUANTITATIV 1.89 MG/DL (<1.0)
[2024-04-12 08:32] LABS: PROCALCITONIN 1.28 ng/ml
[2024-04-12 08:41] LABS: ERYTHROCYTE SEDIMENTATION RATE 14 mm/hr (0-15)
[2024-04-12] MEDS: ESCITALOPRAM OXALATE 5MG TABLET (LEXAPRO) PO SCH (08:58)
[2024-04-12] MEDS: CARVedilol 6.25 MG TAB PO SCH (08:59)
[2024-04-12] MEDS: CHOLESTYRAMINE 4GM PWD PKT PO SCH (09:00)
[2024-04-12 10:47] LABS: ANTI-SMOOTH MUSCLE ANTIBODY < 20 U (<20); LIVER-KIDNEY MICROSOMAL ABY <= 20.0 U (<=20.0)
[2024-04-12] MEDS: FENOFIBRATE 48MG TABLET (TRICOR) PO SCH (20:04)
[2024-04-13 02:47] VITALS: BP 125/84; TEMP 97.7; O2SAT 96
[2024-04-13 02:49] VITALS: BP 125/84
[2024-04-13 06:00] VITALS: BP 124/84; TEMP 97.9; O2SAT 94
[2024-04-13 06:34] LABS: BASO # 0.1 10^3/uL (0.0-0.2); BASO % 0.4 % (0.0-1.0); EOS # 0.2 10^3/uL (0.0-0.5); EOS % 1.3 % (0.0-3.0); HEMATOCRIT 26.7 % (42.0-52.0); HEMOGLOBIN 9.1 g/dl (13.5-17.5); LYMPH # 1.8 10^3/uL (1.5-5.0); LYMPH % 11.4 % (24.0-44.0); MEAN CORPUSCULAR HEMOGLOBIN 35.3 pg (27.0-33.0); MEAN CORPUSCULAR HGB CONC 34.1 g/dl (32.0-36.5); MEAN CORPUSCULAR VOLUME 103.5 fl (80.0-96.0); MONO # 0.8 10^3/uL (0.0-0.8); MONO % 4.8 % (2.0-8.0); NEUTROPHILS # 12.2 10^3/uL (1.5-8.5); NEUTROPHILS % 77.2 % (36.0-66.0); PLATELET COUNT, AUTOMATED 427 10^3/uL (150-450); RED BLOOD COUNT 2.58 10^6/uL (4.30-6.10); WHITE BLOOD COUNT 15.8 10^3/uL (4.0-10.0)
[2024-04-13 06:44] LABS: INR 1.21; PROTHROMBIN TIME 15.6 SECONDS (12.5-14.5)
[2024-04-13 07:20] LABS: ALBUMIN 2.4 G/DL (3.2-5.2); ALKALINE PHOSPHATASE 82 U/L (40-129); ALT/SGPT 38 U/L (7.0-40); AST/SGOT 66 U/L (<34); BILIRUBIN,DIRECT 8.7 MG/DL (<0.4); BILIRUBIN,TOTAL 11.5 MG/DL (0.3-1.2); BLOOD UREA NITROGEN 21 MG/DL (9-23); CALCIUM LEVEL 8.4 MG/DL (8.5-10.1); CARBON DIOXIDE LEVEL 24 MMOL/L (20-31); CHLORIDE LEVEL 110 MMOL/L (98-107); GLOMERULAR FILTRATION RATE > 60.0 (>60); GLUCOSE, FASTING 78 MG/DL (60-100); POTASSIUM SERUM 3.8 MMOL/L (3.5-5.1); SODIUM LEVEL 144 MMOL/L (136-145)
[2024-04-13] MEDS ORDERED: FOLI1TAB11 PO (08:05)
[2024-04-13] MEDS ORDERED: PRED20TA PO (08:05)
[2024-04-13] MEDS ORDERED: CHOL4PW PO (08:05)
[2024-04-13] MEDS ORDERED: HYDR50TA70 PO (08:05)
[2024-04-13] MEDS ORDERED: PRED10TA2 PO (08:05)
[2024-04-13] MEDS ORDERED: THIA100T7 PO (08:05)
[2024-04-13] MEDS ORDERED: THERTAB52 PO (08:05)
[2024-04-13] MEDS ORDERED: PROT20TA11 PO (08:06)
[2024-04-13] MEDS ORDERED: CARA1TAB6 PO (08:06)
[2024-04-13 08:35] VITALS: BP 127/89
[2024-04-13] MEDS ORDERED: BENA25CA4 PO (10:15)
[2024-04-15 00:02] LABS: ANCA SCREEN Negative (Negative)
== END 2024-04-13 11:53 | disposition home or self-care (01) | DRG 280 ==
LOC: M ED 12:27 → M ED INP 04-08 11:40 → M MSPAV 04-08 14:17
PROVIDERS: ADMIT Student in an Organized Health Care Education/Training Program; ATTEND General Practice
PROC: B246ZZZ Ultrasonography of Right and Left Heart (ICD-10-PCS; principal; 2024-04-09)
DX: K70.10 Alcoholic hepatitis without ascites (principal); N17.9 Acute kidney failure, unspecified; E88.09 Other disorders of plasma-protein metabolism, not elsewhere classified; F41.9 Anxiety disorder, unspecified; L29.89 Other pruritus; Z88.0 Allergy status to penicillin; R91.1 Solitary pulmonary nodule; G47.00 Insomnia, unspecified; F17.290 Nicotine dependence, other tobacco product, uncomplicated; F10.10 Alcohol abuse, uncomplicated; D63.8 Anemia in other chronic diseases classified elsewhere; F32.A Depression, unspecified; R73.9 Hyperglycemia, unspecified; T38.0X5A Adverse effect of glucocorticoids and synthetic analogues, initial encounter; B27.00 Gammaherpesviral mononucleosis without complication; K70.0 Alcoholic fatty liver

== ENCOUNTER 2024-10-28 07:21 | Emergency (ER) | payer BC, OTHER, SELFPAY ==
[~2024-10-28] VITALS: Ht 175.3 cm; Wt 63.1 kg
[~2024-10-28 07:21] MED LIST changes: +BENA25CA4 PO; +CARA1TAB6 PO; +CHOL4PW PO; +CVS10CAP8 PO; +FOLI1TAB11 PO; +HYDR50TA70 PO; -MELA10CA2 PO; +PRED10TA2 PO; +PRED20TA PO; +PROT20TA11 PO; +THERTAB52 PO; +THIA100T7 PO
[2024-10-28] MEDS ORDERED: HOME MED LIST COMPLETE! XX SCH (10:35)
[2024-10-28 11:05] VITALS: TEMP 97.9
[2024-10-28] MEDS: MULTIVITAMINS/MINERALS THERAP 1 TAB PO SCH (11:29)
[2024-10-28] MEDS: FOLIC ACID 1 MG TAB PO SCH (11:29)
[2024-10-28] MEDS: THIAMINE 100 MG TAB PO SCH (11:29)
[2024-10-28 13:15] VITALS: BP 158/104
[2024-10-28] MEDS: CHLORTHALIDONE 25 MG TAB PO ONE (13:15)
[2024-10-28 14:35] VITALS: O2SAT 99
[2024-10-28 14:40] VITALS: BP 168/102
[2024-10-28] MEDS ORDERED: ATEN50TA2 PO (14:45)
== END 2024-10-28 15:02 | disposition home or self-care (01) ==
LOC: M ED 07:21
DX: F10.130 Alcohol abuse with withdrawal, uncomplicated (principal); I10 Essential (primary) hypertension; Z88.1 Allergy status to other antibiotic agents; Z79.899 Other long term (current) drug therapy
CPT/HCPCS: 80047; 96374; 99285; J2060